=== PATIENT | female | born 1985 | race Caucasian/White ===

== ENCOUNTER 2021-11-21 17:38 | Inpatient (IN) ==
[2021-11-21] MEDS ORDERED: LORazepam 0.5 MG TAB PO STA (18:21)
--- NOTE | 2021-11-21 18:26 | Emergency Department Note ---
Impression & Plan Depression with suicidal ideation, Acute anxiety ED Provider Note NAME: ALIRIO SANTACRUZ AGE: 36 SEX: F : 1985 ARRIVES VIA: Walk-In INFORMANT: Patient, ED PROVIDER(S): Harley De DO CHIEF COMPLAINT: Anxiety and depression HPI: Patient is a 36-year-old female who presented to the emergency department for an evaluation of mental health issues. The patient does have history of depression in the past. She was taking Lexapro. She saw her family doctor recently and had some changes to her medications. She has been weaning off of her previous medication and starting to go up on a new medication. She states that recently she started to notice worsening anxiety as well as depression. She also has been noticing thoughts of wanting to hurt her self. She said that these thoughts are fleeting. He has no specific plan. She states that she just does not want to be here anymore. She does not have a history of inpatient psychiatric treatment in the past. She denies having any specific attempts such as taking any medications to hurt her self. She states her symptoms are moderate at this time. She does not have a primary therapist as she is trying to change therapists and does not have one currently. The patient states she has been not eating well and has had some weight loss. She denies having any chest pain or fevers. ROS: See above HPI for pertinent positives & negatives. A total of 10 systems reviewed and were otherwise negative. PAST MEDICAL HISTORY: See Below PAST SURGICAL HISTORY: See Below FAMILY HISTORY: See Below SOCIAL HISTORY: See Below HOME MEDICATIONS: See Below ALLERGIES: See Below VITALS: See Below PHYSICAL EXAMINATION: GENERAL: The patient is awake and alert. She is anxious and tearful appearing. EYES: The conjunctivae are clear. The pupils are round and reactive. EARS, NOSE, MOUTH AND THROAT: The nose is without any evidence of any deformity. NECK: The neck is nontender and supple. RESPIRATORY: Normal respiratory effort is noted there is no evidence of wheezing rhonchi or rales CARDIOVASCULAR: Regular rate and rhythm noted there no murmurs rubs or gallops normal S1 normal S2. GASTROINTESTINAL: The abdomen is soft. Abdomen is nontender. MUSCULOSKELETAL/EXTREMITIES: There is no evidence of gross deformity full range of motion is noted in the hips and shoulders. SKIN: There is no obvious evidence of any rash. There are no petechiae, pallor or cyanosis noted. NEUROLOGIC: Patient is awake alert and oriented x3. PSYCH: Patient makes poor eye contact for most of the evaluation. The patient is tearful. The patient is currently denying any active suicidal or homicidal ideation with a plan. MEDICAL DECISION MAKING: Is a 36-year-old female who presented to the emergency department with her significant other for evaluation of mental health issues. The patient has had ongoing and worsening depression and anxiety. She started having some loose suicidal ideation but no specific plan. The patient was requesting an evaluation for inpatient management. The patient was medically cleared in the emergency department. She was evaluated by the mental health case technician. At this time a disposition is still pending. The patient was treated with Ativan in the emergency department with significant improvement of her symptoms. The patient was signed out to Dr. Peacock at change of shift. Please see her note for continuation of care and further disposition. Triage Nursing notes reviewed. Prior medical records reviewed Vital Signs: reviewed and remarkable for tachycardia. Differential diagnosis: Mood disorder, infection, hypoglycemia, electrolyte abnormalities, cardiac sources, intracerebral event, toxicologic, trauma, neurologic, as well as other pathologies. ER treatment provided: See below Diagnostics interpreted by me: ECG: none Laboratory studies: As stated above and show below. Imaging studies: See below Consultation(s): none Past Med/Surg History Medical History Depression with anxiety Social History Smoking Status: Never smoker Tobacco Type: Cigarettes Hx Alcohol Use: No Hx Substance Use: No Feels Safe at Home: Yes Allergies Allergies Allergy/AdvReac Type Severity Reaction Status Date / Time No Known Allergies Allergy Unverified 11/22/21 02:27 Home Meds Home Medications Medication Instructions Recorded Confirmed escitalopram oxalate 10 mg tablet 5 mg PO DAILY 11/22/21 11/22/21 lorazepam 0.5 mg tablet 0.5 mg PO BID PRN 11/22/21 11/22/21 sertraline 50 mg tablet 50 mg PO DAILY 11/22/21 11/22/21 Results & Data (ED) Vital Signs Vital Signs - 24 hr 11/21/21 17:52 11/21/21 18:39 11/21/21 21:30 Temperature 36.6 C Temperature Source Temporal Artery Scan Pulse Rate 109 H Pulse Rate [Right Finger] 75 Pulse Rhythm Regular Pulse Strength Normal Respiratory Rate 18 14 Respiratory Effort / Characteristics Non-Labored Spontaneous Respiratory Depth Normal Respiratory Pattern Regular Blood Pressure 117/83 Blood Pressure [Left Arm] 104/77 Blood Pressure Mean 94 Blood Pressure Mean [Left Arm] 86 Blood Pressure Position Sitting Pulse Oximetry 98 99 Oxygen Delivery Method Room Air Room Air Room Air Sepsis Recent Fever Within 48 Hours No Sepsis New/Unexplained Change in Mental Status N/A Sepsis Action Taken by Nursing No Action Required Home Medications Current Medication List: was personally reviewed by me Laboratory Data Attestation: I reviewed the patient's lab results. Result diagrams: 11/21/21 19:01 11/21/21 19:01 Lab Results 11/21/21 11/21/21 11/21/21 Range/Units 18:55 18:57 19:01 WBC 4.75 L (4.8-10.8) K/uL RBC 4.29 (4.2-5.4) M/uL Hgb 12.8 (12.0-16.0) g/dL Hct 38.0 (37-47) % MCV 88.6 (80-100) fL MCH 29.8 (25-34) pg MCHC 33.7 (32-36) g/dL RDW Std Deviation 39.8 (36.4-46.3) fL RDW Coeff of Samantha 12.5 (11.5-14.5) % Plt Count 271 (130-400) K/uL MPV 9.7 (7.4-10.4) fL Immature Gran % (Auto) 0.0 % Neut % (Auto) 62.9 % Lymph % (Auto) 28.0 % [place] % (Auto) 7.8 % Eos % (Auto) 1.1 % Baso % (Auto) 0.2 % Neut # (Auto) 2.99 (1.4-6.5) K/uL Lymph # (Auto) 1.33 (1.2-3.4) K/uL [place] # (Auto) 0.37 (0.11-0.59) K/uL Eos # (Auto) 0.05 (0-0.5) K/uL Baso # (Auto) 0.01 (0-0.2) K/uL Immature Gran # (Auto) 0.00 (0.00-0.02) K/uL Sodium (136-145) mmol/L Potassium (3.5-5.1) mmol/L Chloride (98-107) mmol/L Carbon Dioxide (21-32) mmol/L Anion Gap (3-11) BUN (6-23) mg/dl Creatinine (0.6-1.2) mg/dl Est Cr Clr Drug Dosing ml/min Est GFR ( Amer) ml/min Est GFR (Non-Af Amer) ml/min BUN/Creatinine Ratio (10-20) Glucose (70-99(Fasting)) mg/dl Calcium (8.5-10.1) mg/dl Total Bilirubin (0.2-1.0) mg/dl AST (13-39) U/L ALT (7-52) U/L Alkaline Phosphatase (34-104) U/L Total Protein (6.0-8.3) gm/dl Albumin (3.4-5.0) gm/dl Globulin (2.5-4.0) gm/dl Albumin/Globulin Ratio (0.9-2) TSH (0.300-4.500) uIu/ml HCG, Qual (Negative) Urine Color Urine Appearance (Clear) Urine pH (4.5-7.5) Ur Specific [place] (1.000-1.030) Urine Protein (Negative) Urine Glucose (UA) (Negative) Urine Ketones (Negative) Urine Blood (Negative) Urine Nitrite (Negative) Urine Bilirubin (Negative) Urine Urobilinogen (Negative) Ur Leukocyte Esterase (Negative) Urine WBC (Auto) (0-5) /hpf Urine RBC (Auto) (0-4) /hpf U Hyaline Cast (Auto) (0-5) /lpf U Epithel Cells (Auto) (0-5) /lpf Urine Bacteria (Auto) (Negative) Ur Renal Epithelial Cell Salicylates (3.0-30) mg/dl Urine Opiates Screen Neg (Neg) Ur Methadone, Qual Neg (Neg) Acetaminophen (10-30) ug/ml Urine Barbiturates Neg (Neg) Ur Phencyclidine (PCP) Neg (Neg) U Amphetamin/Meth Scrn Neg (Neg) MDMA (Ecstasy) Screen Neg (Neg) U Benzodiazepines Scrn Neg (Neg) Ur Cocaine Metabolite Neg (Neg) U Marijuana (THC) Screen Neg (Neg) Ethyl Alcohol mg/dL (<10.0) mg/dl SARS-CoV-2, RNA, NAAT NEGATIVE (NEGATIVE) 11/21/21 11/21/21 11/21/21 Range/Units 19:01 19:01 19:01 WBC (4.8-10.8) K/uL RBC (4.2-5.4) M/uL Hgb (12.0-16.0) g/dL Hct (37-47) % MCV (80-100) fL MCH (25-34) pg MCHC (32-36) g/dL RDW Std Deviation (36.4-46.3) fL RDW Coeff of Samantha (11.5-14.5) % Plt Count (130-400) K/uL MPV (7.4-10.4) fL Immature Gran % (Auto) % Neut % (Auto) % Lymph % (Auto) % [place] % (Auto) % Eos % (Auto) % Baso % (Auto) % Neut # (Auto) (1.4-6.5) K/uL Lymph # (Auto) (1.2-3.4) K/uL [place] # (Auto) (0.11-0.59) K/uL Eos # (Auto) (0-0.5) K/uL Baso # (Auto) (0-0.2) K/uL Immature Gran # (Auto) (0.00-0.02) K/uL Sodium 137 (136-145) mmol/L Potassium 4.0 (3.5-5.1) mmol/L Chloride 105 (98-107) mmol/L Carbon Dioxide 27 (21-32) mmol/L Anion Gap 5 (3-11) BUN 11 (6-23) mg/dl Creatinine 0.96 (0.6-1.2) mg/dl Est Cr Clr Drug Dosing 66.5 ml/min Est GFR ( Amer) 88.8 ml/min Est GFR (Non-Af Amer) 76.6 ml/min BUN/Creatinine Ratio 11.5 (10-20) Glucose 91 (70-99(Fasting)) mg/dl Calcium 9.3 (8.5-10.1) mg/dl Total Bilirubin 0.6 (0.2-1.0) mg/dl AST 13 (13-39) U/L ALT 11 (7-52) U/L Alkaline Phosphatase 43 (34-104) U/L Total Protein 7.2 (6.0-8.3) gm/dl Albumin 4.5 (3.4-5.0) gm/dl Globulin 2.7 (2.5-4.0) gm/dl Albumin/Globulin Ratio 1.7 (0.9-2) TSH 1.725 (0.300-4.500) uIu/ml HCG, Qual (Negative) Urine Color Urine Appearance (Clear) Urine pH (4.5-7.5) Ur Specific [place] (1.000-1.030) Urine Protein (Negative) Urine Glucose (UA) (Negative) Urine Ketones (Negative) Urine Blood (Negative) Urine Nitrite (Negative) Urine Bilirubin (Negative) Urine Urobilinogen (Negative) Ur Leukocyte Esterase (Negative) Urine WBC (Auto) (0-5) /hpf Urine RBC (Auto) (0-4) /hpf U Hyaline Cast (Auto) (0-5) /lpf U Epithel Cells (Auto) (0-5) /lpf Urine Bacteria (Auto) (Negative) Ur Renal Epithelial Cell Salicylates < 3.0 L (3.0-30) mg/dl Urine Opiates Screen (Neg) Ur Methadone, Qual (Neg) Acetaminophen < 3 L (10-30) ug/ml Urine Barbiturates (Neg) Ur Phencyclidine (PCP) (Neg) U Amphetamin/Meth Scrn (Neg) MDMA (Ecstasy) Screen (Neg) U Benzodiazepines Scrn (Neg) Ur Cocaine Metabolite (Neg) U Marijuana (THC) Screen (Neg) Ethyl Alcohol mg/dL (<10.0) mg/dl SARS-CoV-2, RNA, NAAT (NEGATIVE) 11/21/21 11/21/21 11/21/21 Range/Units 19:01 19:01 20:10 WBC (4.8-10.8) K/uL RBC (4.2-5.4) M/uL Hgb (12.0-16.0) g/dL Hct (37-47) % MCV (80-100) fL MCH (25-34) pg MCHC (32-36) g/dL RDW Std Deviation (36.4-46.3) fL RDW Coeff of Samantha (11.5-14.5) % Plt Count (130-400) K/uL MPV (7.4-10.4) fL Immature Gran % (Auto) % Neut % (Auto) % Lymph % (Auto) % [place] % (Auto) % Eos % (Auto) % Baso % (Auto) % Neut # (Auto) (1.4-6.5) K/uL Lymph # (Auto) (1.2-3.4) K/uL [place] # (Auto) (0.11-0.59) K/uL Eos # (Auto) (0-0.5) K/uL Baso # (Auto) (0-0.2) K/uL Immature Gran # (Auto) (0.00-0.02) K/uL Sodium (136-145) mmol/L Potassium (3.5-5.1) mmol/L Chloride (98-107) mmol/L Carbon Dioxide (21-32) mmol/L Anion Gap (3-11) BUN (6-23) mg/dl Creatinine (0.6-1.2) mg/dl Est Cr Clr Drug Dosing ml/min Est GFR ( Amer) ml/min Est GFR (Non-Af Amer) ml/min BUN/Creatinine Ratio (10-20) Glucose (70-99(Fasting)) mg/dl Calcium (8.5-10.1) mg/dl Total Bilirubin (0.2-1.0) mg/dl AST (13-39) U/L ALT (7-52) U/L Alkaline Phosphatase (34-104) U/L Total Protein (6.0-8.3) gm/dl Albumin (3.4-5.0) gm/dl Globulin (2.5-4.0) gm/dl Albumin/Globulin Ratio (0.9-2) TSH (0.300-4.500) uIu/ml HCG, Qual Negative (Negative) Urine Color [place] Urine Appearance Clear (Clear) Urine pH 7.0 (4.5-7.5) Ur Specific [place] 1.005 (1.000-1.030) Urine Protein 1+ H (Negative) Urine Glucose (UA) Negative (Negative) Urine Ketones Negative (Negative) Urine Blood 3+ H (Negative) Urine Nitrite Negative (Negative) Urine Bilirubin Negative (Negative) Urine Urobilinogen Negative (Negative) Ur Leukocyte Esterase 2+ H (Negative) Urine WBC (Auto) 10-30 H (0-5) /hpf Urine RBC (Auto) >30 H (0-4) /hpf U Hyaline Cast (Auto) 5-10 H (0-5) /lpf U Epithel Cells (Auto) >30 H (0-5) /lpf Urine Bacteria (Auto) Negative (Negative) Ur Renal Epithelial Cell Not Reportable Salicylates (3.0-30) mg/dl Urine Opiates Screen (Neg) Ur Methadone, Qual (Neg) Acetaminophen (10-30) ug/ml Urine Barbiturates (Neg) Ur Phencyclidine (PCP) (Neg) U Amphetamin/Meth Scrn (Neg) MDMA (Ecstasy) Screen (Neg) U Benzodiazepines Scrn (Neg) Ur Cocaine Metabolite (Neg) U Marijuana (THC) Screen (Neg) Ethyl Alcohol mg/dL < 10.0 (<10.0) mg/dl SARS-CoV-2, RNA, NAAT (NEGATIVE) Administered Medications Discontinued Medications Lorazepam (Lorazepam 0.5 Mg Tab) 0.5 mg PO NOW STA Stop: 11/21/21 18:22 Last Admin: 11/21/21 18:43 Dose: 0.5 mg Documented by: [id number] Discharge Plan Visit Data Chief Complaint: Anxiety Stated Complaint: ANXIETY ED Provider: Helder Ram Discharge Problem: Depression with suicidal ideation, Acute anxiety Patient Disposition: Still a Patient Forms Stand Alone Forms: [facility] [employer] Suicide Prevention Resources Prescriptions Prescriptions: No Action lorazepam 0.5 mg tablet 0.5 mg PO BID PRN (Reason: Anxiety) RF: 0 escitalopram oxalate 10 mg tablet 5 mg PO DAILY RF: 0 sertraline 50 mg tablet 50 mg PO DAILY RF: 0 Referrals Referrals: PCP,NO [Physician] -
[2021-11-21 19:23] LABS: Basophils # (auto) 0.01 K/uL (0-0.2); Basophils % (auto) 0.2 %; Eosinophils # (auto) 0.05 K/uL (0-0.5); Eosinophils % (auto) 1.1 %; Hemoglobin 12.8 g/dL (12.0-16.0); Lymphocytes # (auto) 1.33 K/uL (1.2-3.4); Mean Corpuscular Hemoglobin 29.8 pg (25-34); Mean Corpuscular Hgb Conc 33.7 g/dL (32-36); Mean Corpuscular Volume 88.6 fL (80-100); Mean Platelet Volume 9.7 fL (7.4-10.4); Monocytes # (auto) 0.37 K/uL (0.11-0.59); Monocytes % (auto) 7.8 %; Neutrophils # (auto) 2.99 K/uL (1.4-6.5); Neutrophils % (auto) 62.9 %; Platelet Count 271 K/uL (130-400); RDW Coefficient of Variation 12.5 % (11.5-14.5); RDW Standard Deviation 39.8 fL (36.4-46.3); Red Blood Count 4.29 M/uL (4.2-5.4); White Blood Count 4.75 K/uL (4.8-10.8)
[2021-11-21 19:57] LABS: Pregnancy Test, Serum Negative (Negative)
[2021-11-21 20:09] LABS: Albumin Globulin Ratio 1.7 (0.9-2); Albumin Level 4.5 gm/dl (3.4-5.0); BUN Creatinine Ratio 11.5 (10-20); Bilirubin,Total 0.6 mg/dl (0.2-1.0); Calcium 9.3 mg/dl (8.5-10.1); Creatinine Clr Calc Pharmacy 66.5 ml/min; Est GFR (African American) 88.8 ml/min; Est GFR (Non-African American) 76.6 ml/min; Globulin 2.7 gm/dl (2.5-4.0); Total Protein 7.2 gm/dl (6.0-8.3)
[2021-11-21 20:12] LABS: Acetaminophen < 3 ug/ml (10-30); Salicylate < 3.0 mg/dl (3.0-30)
[2021-11-21 20:30] LABS: Amphetamines+Metham, Urine Neg (Neg); Barbiturates, Urine Neg (Neg); Benzodiazepine, Urine Neg (Neg); Cocaine, Urine Neg (Neg); MDMA (Ecstacy), Urine Neg (Neg); Methadone, Urine Neg (Neg); Opiate, Urine Neg (Neg); Phencyclidine, Urine Neg (Neg)
[2021-11-21 21:18] LABS: Appearance Urine Clear (Clear); Bacteria Urine Automated Negative (Negative); Bilirubin Urine Negative (Negative); Blood Urine 3+ (Negative); Color Urine Orange; Epithelial Cell Urine Auto >30 /lpf (0-5); Glucose Urine UA Negative (Negative); Ketones Urine Negative (Negative); Leukocyte Esterase Urine 2+ (Negative); Nitrite Urine Negative (Negative); Protein Urine 1+ (Negative); RBC Urine Automated >30 /hpf (0-4); Specific Gravity Urine 1.005 (1.000-1.030); Urobilinogen Urine Negative (Negative)
--- NOTE | 2021-11-22 02:07 | Emergency Department Note ---
ED Visit Note I received this patient in signout at the change of shift from Dr. De pending mental health evaluation. Patient was medically cleared and referred to the psychiatric case liner for assessment. Patient strongly desires a voluntary admission to [facility] which may have a bed open in the morning. If there is no open bed in the morning, patient will be open to exploring other facilities. Case was signed out to Dr. Amezcua at the change of shift pending final disposition. .
--- NOTE | 2021-11-22 07:16 | Emergency Department Note ---
ED Visit Note I assumed care at the change of shift. The patient was awaiting evaluation by psychiatry for potential voluntary hospitalization. She had presented depressed. Patient did require some sublingual Ativan during her time here in the ED. She was cooperative. She remained voluntary. The patient was seen by psychiatry case management. Our psychiatry services at this hospital[facility] did evaluate her as well. She has been accepted to [facility] A bed has been secured. .
[2021-11-22] MEDS ORDERED: LORazepam 1 MG TAB SL STA ×2 (08:37→08:48)
[2021-11-22] MEDS ORDERED: SERTRALINE HCL 50 MG TABLET PO SCH (09:00)
[2021-11-22] MEDS ORDERED: ESCITALOPRAM OXALATE ORAL SOLN 5 MG/5 ML PO SCH (09:00)
[2021-11-22] MEDS ORDERED: ESCITALOPRAM OXALATE 20 MG TAB PO SCH (09:00)
[2021-11-22] MEDS ORDERED: ACETAMINOPHEN 325 MG TAB PO PRN (13:41)
[2021-11-22] MEDS ORDERED: ALUMINUM/MAGNESIUM SUSP 30 ML UDC PO PRN (13:41)
[2021-11-22] MEDS ORDERED: SODIUM CHLORIDE 0.65% NA SOLN 45 ML (OCEAN) PRN (13:41)
[2021-11-22] MEDS ORDERED: MAGNESIUM HYDROXIDE SUSP 30 ML UDC PO PRN (13:41)
[2021-11-22] MEDS ORDERED: hydrOXYzine HCl 25 MG TAB PO PRN ×2 (13:41)
[2021-11-22] MEDS ORDERED: BISMUTH SUBSALICYLATE LIQD 236 ML PO PRN (13:41)
--- NOTE | 2021-11-23 08:26 | History & Physical ---
Date of Service November 23, 2021 Impression / Recommendations Impression The patient is a 36 year old with a history of depression, anxiety and post- depression who was admitted for worsening mood symptoms, SI and inability to function in the outpatient setting. Diagnostically consistent with MDD with anxious distress as well as RADHA with panic attacks. The patient is deemed unstable and requires psychiatric hospitalization for diagnostic clarification, safety and stabilization, medication management and development of further coping skills. Discussed medication treatment options in detail. Discussed risks, benefits and alternatives of SSRIs, staying on sertraline, trying fluoxetine or an SNRI or mirtazapine. Patient would like to continue and consented to sertraline for MDD. Reviewed side effects including but not limited to: GI, DUMAS, sexual side effects, and counseled on black box warning of potential for emergence of or increased SI and need to let staff know should this occur or should they feel unsafe. Also discussed importance of seeking emergency care following discharge if this side effect occurs in the future. Also reviewed side effects of ativan, which she consents to continuing, including but not limited to addiction potential, tolerance, dizziness. (1) MDD (major depressive disorder), recurrent episode, moderate: (2) Generalized anxiety disorder with panic attacks: 11/23/21: The patient was admitted to the [facility] ([facility] mental health unit) on q15 min checks (behavioral with suicide precautions) for safety. The patient will participate in group, recreational, and milieu therapies and w ill be offered additional individual and family sessions as clinically appropriate. -sertraline 50mg qhs (with snack to reduce GI symptoms) -mirtazapine 7.5 mg qhs prn -ativan 0.5 mg daily prn -Y-BOCS Inventory Assets Strengths: supportive family, willing to do therapy, intelligent, help seeking Needs: additional coping skills, medication adjustment, safety and stabilization Risk Factors Assessment Acute risk is moderate given mood symptoms, and increasing SI but no zamora or intent and no hx of prior attempts. Most significant modifiable risk factors are treating her depression and anxiety. 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 Chief Complaint "Things have been really difficult". History of Present Illness Kaya presents for admission for worsening depression, anxiety and SI in the context of multiple stressors including less social contact with others outside her family, parenting stressors, some hormonal changes 10 weeks ago when she stopped breast feeding, and in the midst of a cross-taper from escitalopram to sertraline. She has been unable to function in the outpatient setting, including not being able to take care of her children, and thus sought inpatient treatment with the support of her . She began the cross-taper two weeks ago due to worsening mood symptoms and feeling that it was no longer effective. Sertraline was started two weeks ago but she's been having side effects of GI symptoms and somnolence. She endorses mood symptoms of depression and anxiety which have been worsening since June including: tearfulness, self-guilt, hopelessness, helplessness, decreased motivation, low energy, decreased appetite with weight loss (about 15 lbs over the last 2 months), anhedonia, her sleep has been somewhat stable (partly which she attributes to lexapro which helped at night) but still feels tried during the day. Anxiety symptoms including generalized worries, physical symptoms, ruminative thoughts, worries about her kids eating/making/preparing food has become anxiety producing, fatigue, fears about the future, panic attacks, especially on awakening in the morning. Most recently has been very anxious about her kids eating and worrying about negative impacts on the environment. Prominent fear response. She denies compulsive behaviors but feels like it could get to that point. Wakes up every morning feeling anxious and some mornings that becomes a panic attack. On Sunday she had a bad panic attack that made it so she could not care for kids for the rest of the day and was "unfunctional". In the past she's had severe anxiety including having to leave two positions due to high stress leading to significant anxiety. She has in the past gotten very worried about her performance. She notes her anxious thoughts continue to worsen , habe broadened and she feels like "the world is going to end and my children are going to have a really poor quality of life" and "it's not something I can walk away from". She has also started to have thoughts of suicide of no longer wanting to be alive and not wanting to feel anything anymore. No rehearsal behaviors, plan or intent. Psychiatric ROS is notable for pertinent positives for no hx or current symptoms of: brief cutting in high school for a few months. Notable for pertinent negati ves for no hx or current symptoms of: charlie, psychosis, eating disorder, OCD, no hx of trauma. She has been taking escitalopram 5mg qd and sertraline 50mg qd which has been making her nauseaus and tired. She also takes ativan 0.5 mg daily prn (single script 10/03/21 for 30 day supply per PDMP review), she's been using it every day but also had some old scripts she had been using. Past Psychiatric History Previous Psych History: PPD 5 years ago Current Psychiatric Diagnosis: MDD, RADHA Outpatient Services: transitioning to a new therapist Liliam Goins but hasn't met with her yet, previously had a therapist at [facility]; Maria C MARIN who works with a psychiatrist through [facility] in Psychiatric Previous Psych Admissions: n/a Do You Have Access To A Gun?: No History of Previous Suicide Attempt: No Past Medication Trials: Lexapro after PPD for 5 years and recently dose maximized but symptoms persisted Past Head Trauma/Neuro History History of Concussion/Seizure: No Allergies Allergy/AdvReac Type Severity Reaction Status Date / Time No Known Allergies Allergy Verified 11/23/21 10:09 Home Medications Medication Instructions Recorded Confirmed Type escitalopram oxalate 10 mg tablet 5 mg PO DAILY 11/22/21 11/22/21 History lorazepam 0.5 mg tablet 0.25 mg PO BID PRN 11/22/21 11/23/21 History sertraline 50 mg tablet 50 mg PO DAILY 11/22/21 11/22/21 History Family History Family History of: Depression and Other-List under Comment Family Mental Health History Comment: Sister - depression, Maternal Uncle- schizophrenia Alcohol History Hx of Alcohol Use Over the Past 12 Months: Yes (social - less than monthly) AUDIT Total Score: 0 One drink less than once per month Smoking Use Have You Smoked or Used Tobacco Products in the Last 30 Days: No Smoking Status: Never smoker Substance History Hx of Prescription Med Misuse Over the Past 12 Months: No Hx of Over the Counter Med Misuse Over the Past 12 Months: No Hx of Inhalent Misuse Over the Past 12 Months: No Hx of Organic Substance Use Over the Past 12 Months: No Hx of Illegal Substances/Street Drug Use Over Past 12 Months: No Problems as a Result of Past Substance Use: None Identified None Personal History Living Arrangements: Home (with and 2 children) Childhood: [place], [place]. Her parents are . Mother can be a support for helping with her children. Her is a good support but he also works a lot. Has a sister who lives in [place]. 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 ) Marital Status: Number Of Children: 2-5 yo girl and 15 mo old boy Beliefs That Will Affect Care: None Current Legal Problems: No Hx Legal Problems: No Hx Traumatic Life Events: No Patient History Medical History (Updated 11/23/21 @ 10:08 by Ellen Brannon MD) Depression with anxiety Generalized anxiety disorder with panic attacks Post depression POTS (postural orthostatic tachycardia syndrome) not formalized diagnosed but suspects Social History Smoking Status: Never smoker Tobacco Type: Cigarettes Hx Alcohol Use: No Hx Substance Use: No Preferred Language: Dominican Communication Ability: Effective Cultural Anthropology Professor Required: No Beliefs That Will Affect Care: None Feels Safe at Home: Yes Assistive Devices: None Review of Systems Review of Systems: All systems reviewed & are unremarkable except as noted in HPI & below (periods of back pain ) Physical Exam Psychiatric: Orientation: alert and oriented x 3 Apperance: appropriately dressed and appropriately groomed Eye Contact: good eye contact Motor Behavior: no abnormal motor movements Speech: normal rate/rhythm/volume of speech Affect: + depressed affect, + anxious affect and + tearful affect Mood: + depressed mood and + anxious mood Thought Process: goal directed thought process Thought Content: reality based without delusions Suicidal Thoughts: denies suicidal plan and denies suicidal intent; + reports suicidal thoughts (intermittent passive thoughts ) Homicidal Thoughts: denies homicidal thoughts Hallucinations: no auditory hallucinations and no visual hallucinations Cognition: recent memory grossly intact, remote memory grossly intact, attention grossly intact and language grossly intact Estimated Intelligence: consistent with education level Insight: + fair insight Judgement: + fair judgement Vital Signs (Past 24 Hours): Last Vital Signs Temp 36.7 C 11/23/21 05:57 Pulse 73 11/23/21 05:57 Resp 16 11/23/21 05:57 BP 105/68 11/23/21 05:57 Pulse Ox 97 11/22/21 07:00 Exam Statement: A physical exam was performed in the ED by Dr. De for the purposes of medical clearance. I accept that physical as correct and adequate for the purposes of the inpatient physical exam. Results & Data ([facility]) Laboratory Results Reviewed, TSH nml Current Inpatient Medications Current Inpatient Medications: Current Inpatient Medications Acetaminophen (Acetaminophen 325 Mg Tab) 650 mg PO Q4H PRN PRN Reason: Headache or Minor Fever Stop: 12/22/21 13:40 Al Hydrox/Mg Hydrox/Simethicone (Aluminum/Magnesium Susp 30 Ml Udc) 30 ml PO Q4H PRN PRN Reason: GI Upset Stop: 12/22/21 13:40 Bismuth Subsalicylate (Bismuth Subsalicylate Liqd 236 Ml) 15 ml PO PRN PRN PRN Reason: Loose Stool Stop: 12/22/21 13:40 Hydroxyzine HCl (Hydroxyzine Hcl 25 Mg Tab) 50 mg PO HSZ PRN PRN Reason: Insomnia Stop: 12/22/21 13:40 Hydroxyzine HCl (Hydroxyzine Hcl 25 Mg Tab) 25 mg PO Q4H PRN PRN Reason: Anxiety Stop: 12/22/21 13:40 Last Admin: 11/23/21 07:42 Dose: 25 mg Documented by: Magnesium Hydroxide (Magnesium Hydroxide Susp 30 Ml Udc) 30 ml PO DAILY PRN PRN Reason: Constipation Stop: 12/22/21 13:40 Sodium Chloride (Sodium Chloride 0.65% Na Soln 45 Ml ([place])) 1 - 2 sprays NA PRN PRN PRN Reason: Nasal Dryness/Congestion Stop: 12/22/21 13:40
[2021-11-23] MEDS ORDERED: LORazepam 0.5 MG TAB PO PRN (10:59)
[2021-11-23] MEDS ORDERED: MIRTAZAPINE TAB 15 MG TAB PO PRN (11:00)
[2021-11-23] MEDS: SERTRALINE HCL 50 MG TABLET PO SCH (21:55)
[2021-11-23] MEDS ORDERED: MIRTAZAPINE TAB 15 MG TAB PO SCH (22:00)
--- NOTE | 2021-11-24 08:57 | Psychiatric Progress Note ---
Date of Service November 24, 2021 Impression / Recommendations Impression The patient is a 36 year old with a history of depression, anxiety and post- depression who was admitted for worsening mood symptoms, SI and inability to function in the outpatient setting. Diagnostically consistent with MDD with anxious distress as well as RADHA with panic attacks. The patient is deemed unstable and requires psychiatric hospitalization for diagnostic clarification, safety and stabilization, medication management and development of further coping skills. 11/24/21: Switch to scheduled mirtazapine and monitor for improvement in morning sedation, if does not improve could consider stopping versus shifting dosing to slightly earlier in the evening as it does seem to be helping to reduce morning anxiety. Continue with sertraline which she is tolerating well without further GI side effects. Remains distressed by anxiety symptoms. Y-BOCS helped to rule out OCD as potential diagnosis. (1) MDD (major depressive disorder), recurrent episode, moderate: (2) Generalized anxiety disorder with panic attacks: 11/24/21: Schedule mirtazapine. Continue with sertraline. 11/23/21: The patient was admitted to the [facility] ([facility] mental health unit) on q15 min checks (behavioral with suicide precautions) for safety. The patient will participate in group, recreational, and milieu therapies and will be offered additional individual and family sessions as clinically appropriate. -sertraline 50mg qhs (with snack to reduce GI symptoms) -mirtazapine 7.5 mg qhs prn -ativan 0.5 mg daily prn -Y-BOCS Inventory Assets Strengths: supportive family, willing to do therapy, intelligent, help seeking Needs: additional coping skills, medication adjustment, safety and stabilization Risk Factors Assessment Male: No : Yes Do You Have Access To A Gun?: No Health Problems: No Mental Health Diagnoses: Yes Substance Use Disorders: No Previous Attempt: No Family History of Suicide: No Previous Psychiatric Hospitalization: No Hopelessness: Yes Smoker: No Protective Factors Assessment : Yes Responsible for Young Children: Yes Employed: No ([id number] mother) Stable Relationships: Yes Supportive Family: Yes Good Rapport with Provider: Yes Interval History Identifying Information ALIRIO SANTACRUZ is a 36-year-old woman who currently lives in [facility] with her and two children, has a history of post depression, depression and anxiety, and was admitted on 11/22/21 14:00 on a 201 voluntary commitment for worsening depression, anxiety and SI. Chief Complaint "I'm ok". Review of Systems Sleep Information Total Hours of Sleep: 6 Meal Information Percent Meal Consumed - Breakfast: 100 Percent Meal Consumed - Lunch: 100 Percent Meal Consumed - Dinner: 90 Subjective Subjective Patient was seen & assessed and interval progress reviewed with treatment team nursing and social work. Had a long individualized therapy session with unit counselor. Didn't need any prn ativan yesterday nor this morning. Took prn mirtazapine last night. Today reports her mood is "ok". She feels somewhat sedated and groggy from mirtazapine last night but she didn't have as much anxiety this morning nor any GI symptoms. No side effects from the sertraline. She wonders if she's possibly having dizziness but also notes this could be because we talked about that as a possible side effect of mirtazapine and she can end up "convincing myself of things" in regards to side effects. She feels the side effects are tolerable and would like to try the mirtazapine as scheduled again tonight. She completed Y-BOCS inventory, reviewed results of a few obsession/anxious symptoms but no compulsions and that findings on inventory help rule out diagnosis of OCD which she agrees with. Improved appetite today, had breakfast and all of her lunch. Physical Exam Psychiatric Orientation: alert and oriented x 3 Apperance: appropriately dressed and appropriately groomed Eye Contact: good eye contact Motor Behavior: no abnormal motor movements Speech: normal rate/rhythm/volume of speech Affect: + depressed affect and + anxious affect Mood: + depressed mood and + anxious mood Thought Process: goal directed thought process Thought Content: reality based without delusions Suicidal Thoughts: denies suicidal plan and denies suicidal intent; + reports suicidal thoughts (intermittent passive thoughts but feels safe here) Homicidal Thoughts: denies homicidal thoughts Hallucinations: no auditory hallucinations and no visual hallucinations Cognition: recent memory grossly intact, remote memory grossly intact, attention grossly intact and language grossly intact Estimated Intelligence: consistent with education level Insight: + fair insight Judgement: + fair judgement Vital Signs (Past 24 Hours) Last Vital Signs Temp 36.6 C 11/24/21 06:18 Pulse 71 11/24/21 06:18 Resp 16 11/24/21 06:18 BP 105/73 11/24/21 06:18 Pulse Ox 98 04/21/22 06:18 Results & Data ([facility]) Current Inpatient Medications Current Inpatient Medications: Current Inpatient Medications Acetaminophen (Acetaminophen 325 Mg Tab) 650 mg PO Q4H PRN PRN Reason: Headache or Minor Fever Stop: 12/22/21 13:40 Al Hydrox/Mg Hydrox/Simethicone (Aluminum/Magnesium Susp 30 Ml Udc) 30 ml PO Q4H PRN PRN Reason: GI Upset Stop: 12/22/21 13:40 Bismuth Subsalicylate (Bismuth Subsalicylate Liqd 236 Ml) 15 ml PO PRN PRN PRN Reason: Loose Stool Stop: 12/22/21 13:40 Hydroxyzine HCl (Hydroxyzine Hcl 25 Mg Tab) 50 mg PO HSZ PRN PRN Reason: Insomnia Stop: 12/22/21 13:40 Hydroxyzine HCl (Hydroxyzine Hcl 25 Mg Tab) 25 mg PO Q4H PRN PRN Reason: Anxiety Stop: 12/22/21 13:40 Last Admin: 11/23/21 07:42 Dose: 25 mg Documented by: Lorazepam (Lorazepam 0.5 Mg Tab) 0.5 mg PO DAILY PRN PRN Reason: Anxiety Stop: 12/23/21 10:58 Magnesium Hydroxide (Magnesium Hydroxide Susp 30 Ml Udc) 30 ml PO DAILY PRN PRN Reason: Constipation Stop: 12/22/21 13:40 Mirtazapine (Mirtazapine Tab 15 Mg Tab) 7.5 mg PO HS PRN PRN Reason: Anxiety/Insomnia Stop: 12/23/21 21:59 Last Admin: 11/23/21 21:57 Dose: 7.5 mg Documented by: Sertraline HCl (Sertraline Hcl 50 Mg Tablet) 50 mg PO HS SHERYL Stop: 12/23/21 21:59 Last Admin: 11/23/21 21:55 Dose: 50 mg Documented by: Sodium Chloride (Sodium Chloride 0.65% Na Soln 45 Ml ([place])) 1 - 2 sprays NA PRN PRN PRN Reason: Nasal Dryness/Congestion Stop: 12/22/21 13:40 Mental Health & Subst Abuse Tx Psychiatrist Name of Psychiatrist: [facility] - Maria C Zambrano Psychiatrist's Date of Appointment with Psychiatrist: 11/28/21 Time of Appointment with Psychiatrist: 3:30 PM Psychiatric Appointment Comment: [address] [place] [address] Therapist Name of Therapist: Liliam Goins Therapist's Date of Therapist Appointment: 11/30/21 Time of Therapist Appointment: 10:00 AM [facility] call to [facility] after discharge Post Discharge Appointments Primary Care Physician Name Of Family Doctor: [facility] - Dr. Shauna Mayen Primary Care Provider Appointment Comment[facility] [address] [facility] [place] [address] Contact Information Discharge Discharge Address: [address] [place] [address] [place] [id number]
[2021-11-24] MEDS ORDERED: SERTRALINE HCL 50 MG TABLET PO SCH (09:00)
[2021-11-24] MEDS: SERTRALINE HCL 50 MG TABLET PO SCH (21:23)
[2021-11-24] MEDS ORDERED: MIRTAZAPINE TAB 15 MG TAB PO SCH (22:00)
--- NOTE | 2021-11-25 12:29 | Psychiatric Progress Note ---
Date of Service November 25, 2021 Impression / Recommendations Impression The patient is a 36 year old with a history of depression, anxiety and post- depression who was admitted for worsening mood symptoms, SI and inability to function in the outpatient setting. Diagnostically consistent with MDD with anxious distress as well as RADHA with panic attacks. The patient is deemed unstable and requires psychiatric hospitalization for diagnostic clarification, safety and stabilization, medication management and development of further coping skills. 11/25/21: ongoing anxiety but improving (1) MDD (major depressive disorder), recurrent episode, moderate: (2) Generalized anxiety disorder with panic attacks: 11/25/21: continue pm meds but shift dosing to 8 pm. Monitor prn use. family meeting. discussed duration of treatment and denies plan to have more children at this time. 11/24/21: Schedule mirtazapine. Continue with sertraline. 11/23/21: The patient was admitted to the [facility] ([facility]) on q15 min checks (behavioral with suicide precautions) for safety. The patient will participate in group, recreational, and milieu therapies and will be offered additional individual and family sessions as clinically appropriate. -sertraline 50mg qhs (with snack to reduce GI symptoms) -mirtazapine 7.5 mg qhs prn -ativan 0.5 mg daily prn -Y-BOCS Inventory Assets Strengths: supportive family, willing to do therapy, intelligent, help seeking Needs: additional coping skills, medication adjustment, safety and stabilization Risk Factors Assessment Male: No : Yes Do You Have Access To A Gun?: No Health Problems: No Mental Health Diagnoses: Yes Substance Use Disorders: No Previous Attempt: No Family History of Suicide: No Previous Psychiatric Hospitalization: No Hopelessness: Yes Smoker: No Protective Factors Assessment : Yes Responsible for Young Children: Yes Employed: No ([id number] mother) Stable Relationships: Yes Supportive Family: Yes Good Rapport with Provider: Yes Interval History Identifying Information ALIRIO SANTACRUZ is a 36-year-old woman who currently lives in [facility] with her and two children, has a history of post depression, depression and anxiety, and was admitted on 11/22/21 14:00 on a 201 voluntary commitment for worsening depression, anxiety and SI. Chief Complaint "my stomach is a lot better". Review of Systems Sleep Information Total Hours of Sleep: 6 Meal Information Percent Meal Consumed - Breakfast: 30 Percent Meal Consumed - Lunch: 75 Percent Meal Consumed - Dinner: 100 Nutrition Comment: drank protein shake Subjective Subjective Patient was seen & assessed and interval progress reviewed with treatment team. Patient is attending groups, rates mood better in pm than am but less fatigued today. States that she had some difficulty falling alseep. Feels that Vistaril and Ativan prn have both been helpful. Physical Exam Psychiatric Orientation: alert and oriented x 3 Apperance: appropriately dressed and appropriately groomed Eye Contact: good eye contact Motor Behavior: no abnormal motor movements Speech: normal rate/rhythm/volume of speech Affect: + depressed affect and + anxious affect Mood: + depressed mood and + anxious mood Thought Process: goal directed thought process Thought Content: reality based without delusions Suicidal Thoughts: denies suicidal thoughts (last pm), denies suicidal plan and denies suicidal intent Homicidal Thoughts: denies homicidal thoughts Hallucinations: no auditory hallucinations and no visual hallucinations Cognition: recent memory grossly intact, remote memory grossly intact, attention grossly intact and language grossly intact Estimated Intelligence: consistent with education level Insight: + fair insight Judgement: + fair judgement Vital Signs (Past 24 Hours) Last Vital Signs Temp 36.7 C 11/25/21 06:00 Pulse 72 11/25/21 06:14 Resp 16 11/25/21 06:00 BP 107/86 11/25/21 06:14 Pulse Ox 98 11/24/21 06:18 Results & Data ([facility]) Current Inpatient Medications Current Inpatient Medications: Current Inpatient Medications Acetaminophen (Acetaminophen 325 Mg Tab) 650 mg PO Q4H PRN PRN Reason: Headache or Minor Fever Stop: 12/22/21 13:40 Last Admin: 11/25/21 01:39 Dose: 650 mg Documented by: Al Hydrox/Mg Hydrox/Simethicone (Aluminum/Magnesium Susp 30 Ml Udc) 30 ml PO Q4H PRN PRN Reason: GI Upset Stop: 12/22/21 13:40 Bismuth Subsalicylate (Bismuth Subsalicylate Liqd 236 Ml) 15 ml PO PRN PRN PRN Reason: Loose Stool Stop: 12/22/21 13:40 Hydroxyzine HCl (Hydroxyzine Hcl 25 Mg Tab) 50 mg PO HSZ PRN PRN Reason: Insomnia Stop: 12/22/21 13:40 Hydroxyzine HCl (Hydroxyzine Hcl 25 Mg Tab) 25 mg PO Q4H PRN PRN Reason: Anxiety Stop: 12/22/21 13:40 Last Admin: 11/23/21 07:42 Dose: 25 mg Documented by: Lorazepam (Lorazepam 0.5 Mg Tab) 0.5 mg PO DAILY PRN PRN Reason: Anxiety Stop: 12/23/21 10:58 Magnesium Hydroxide (Magnesium Hydroxide Susp 30 Ml Udc) 30 ml PO DAILY PRN PRN Reason: Constipation Stop: 12/22/21 13:40 Mirtazapine (Mirtazapine Tab 15 Mg Tab) 7.5 mg PO HS SHERYL Stop: 12/25/21 19:59 Sertraline HCl (Sertraline Hcl 50 Mg Tablet) 50 mg PO HS SHERYL Stop: 12/25/21 19:59 Sodium Chloride (Sodium Chloride 0.65% Na Soln 45 Ml ([facility])) 1 - 2 sprays NA PRN PRN PRN Reason: Nasal Dryness/Congestion Stop: 12/22/21 13:40 Mental Health & Subst Abuse Tx Psychiatrist Name of Psychiatrist: [facility] - Maria C Zambrano Psychiatrist's Date of Appointment with Psychiatrist: 12/01/21 Time of Appointment with Psychiatrist: 3:00 PM Psychiatric Appointment Comment: [address] [place] [address] Therapist Name of Therapist: Liliam Goins Therapist's Date of Therapist Appointment: 11/30/21 Time of Therapist Appointment: 10:00 AM Therapy Appointment Comment: [address] [place], [place] [address]Partha - call to confirm after discharge Post Discharge Appointments Primary Care Physician Name Of Family Doctor: [facility] - Dr. Shauna Mayen Primary Care Date of Appointment with PCP: 11/30/21 Time of Appointment with PCP: 1:30pm (please arrive by 1:15) Provider Appointment Comment: [address] [place] [address] Contact Information Discharge Discharge Address: [address] [place] [id number]
[2021-11-25] MEDS ORDERED: MIRTAZAPINE TAB 15 MG TAB PO SCH (20:00)
[2021-11-25] MEDS ORDERED: SERTRALINE HCL 50 MG TABLET PO SCH ×3 (20:00)
--- NOTE | 2021-11-26 11:19 | Discharge Summary ---
Date of Service November 26, 2021 History of Present Illness As per Dr. Brannon on admission Kaya presents for admission for worsening depression, anxiety and SI in the context of multiple stressors including less social contact with others outside her family, parenting stressors, some hormonal changes 10 weeks ago when she stopped breast feeding, and in the midst of a cross-taper from escitalopram to sertraline. She has been unable to function in the outpatient setting, including not being able to take care of her children, and thus sought inpatient treatment with the support of her . She began the cross-taper two weeks ago due to worsening mood symptoms and feeling that it was no longer effective. Sertraline was started two weeks ago but she's been having side effects of GI symptoms and somnolence. She endorses mood symptoms of depression and anxiety which have been worsening since June including: tearfulness, self-guilt, hopelessness, helplessness, decreased motivation, low energy, decreased appetite with weight loss (about 15 lbs over the last 2 months), anhedonia, her sleep has been somewhat stable (partly which she attributes to lexapro which helped at night) but still feels tried during the day. Anxiety symptoms including generalized worries, physical symptoms, ruminative thoughts, worries about her kids eating/making/preparing food has become anxiety producing, fatigue, fears about the future, panic attacks, especially on awakening in the morning. Most recently has been very anxious about her kids eating and worrying about negative impacts on the environment. Prominent fear response. She denies compulsive behaviors but feels like it could get to that point. Wakes up every morning feeling anxious and some mornings that becomes a panic attack. On Sunday she had a bad panic attack that made it so she could not care for kids for the rest of the day and was "unfunctional". In the past she's had severe anxiety including having to leave two positions due to high stress leading to significant anxiety. She has in the past gotten very worried about her performance. She notes her anxious thoughts continue to worsen , habe broadened and she feels like "the world is going to end and my children are going to have a really poor quality of life" and "it's not something I can walk away from". She has also started to have thoughts of suicide of no longer wanting to be alive and not wanting to feel anything anymore. No rehearsal behaviors, plan or intent. Psychiatric ROS is notable for pertinent positives for no hx or current symptoms of: brief cutting in high school for a few months. Notable for pertinent negatives for no hx or current symptoms of: charlie, psychosis, eating disorder, OCD, no hx of trauma. She has been taking escitalopram 5mg qd and sertraline 50mg qd which has been making her nauseaus and tired. She also takes ativan 0.5 mg daily prn (single script 10/03/21 for 30 day supply per PDMP review), she's been using it every day but also had some old scripts she had been using. Physical Exam Psychiatric See admission H&P and DOD assessment. Vital Signs (Past 24 Hours) Last Vital Signs Temp 36.6 C 11/26/21 06:37 Pulse 69 11/26/21 06:38 Resp 16 11/26/21 06:37 BP 114/76 11/26/21 06:38 Pulse Ox 98 11/24/21 06:18 Principal Diagnosis major depressive disorder Psychiatric Data See daily stay summary. In short, safety was maintained and the patient was cooperative with care. She denied suicidal thoughts as her stay progressed and was eating and sleeping better. Medication changes included trial of Remeron to augment Zoloft and shifting Zoloft to pm and they tolerated this well. Prn Vistaril was also effective. Reviewed that meds will continue to be monitored/adjusted on an outpatient basis depending on her response. May have option of Remeron monotherapy with dose increase or titration of Zoloft as per outpatient provider. She still has some prn Ativan at home which will use for emergencies if Vistaril ineffective. A family session was held with her and safety plan was completed prior to discharge. Her mother is staying for approximately another week to ease transition home with young children. Day of Discharge Assessment Today the patient voices readiness for discharge. They note improvement in mood and deny thoughts to harm self or others. Thoughts remain organized and they are improved from admission. There is no evidence of psychosis. They agree to take mediations as prescribed and keep follow-up appointments. They are stable for discharge to outpatient level of care. Transition of Care Transition Of Care Record: was reviewed with the patient Advance Directives Advance Directives Information Provided: Yes Advance Directives: No Mental Health Advance Directive: No Advance Directives on File: No Living Will: No Power of Agricultural Lender: No Advance Directives Reason:: Declines as Mental Health Visit. Risk Factors Assessment Male: No : Yes Do You Have Access To A Gun?: No Health Problems: No Mental Health Diagnoses: Yes Substance Use Disorders: No Previous Attempt: No Family History of Suicide: No Previous Psychiatric Hospitalization: No Hopelessness: Yes Smoker: No Protective Factors Assessment : Yes Responsible for Young Children: Yes Employed: No ([id number] mother) Stable Relationships: Yes Supportive Family: Yes Good Rapport with Provider: Yes Tobacco Cessation at Discharge Tobacco Cessation Medication Prescribed at Discharge: Not Applicable/Non-Smoker Total Time Total Time Spent: Greater Than 30 Minutes Total Time Includes: Examination of the patient, Discharge Planning and Medication Reconciliation Discharge Data Lab Results 11/21/21 11/21/21 11/21/21 18:55 18:57 19:01 WBC 4.75 L RBC 4.29 Hgb 12.8 Hct 38.0 MCV 88.6 MCH 29.8 MCHC 33.7 RDW Std Deviation 39.8 RDW Coeff of Samantha 12.5 Plt Count 271 MPV 9.7 Immature Gran % (Auto) 0.0 Neut % (Auto) 62.9 Lymph % (Auto) 28.0 [place] % (Auto) 7.8 Eos % (Auto) 1.1 Baso % (Auto) 0.2 Neut # (Auto) 2.99 Lymph # (Auto) 1.33 [place] # (Auto) 0.37 Eos # (Auto) 0.05 Baso # (Auto) 0.01 Immature Gran # (Auto) 0.00 Sodium Potassium Chloride Carbon Dioxide Anion Gap BUN Creatinine Est Cr Clr Drug Dosing Est GFR ( Amer) Est GFR (Non-Af Amer) BUN/Creatinine Ratio Glucose Calcium Total Bilirubin AST ALT Alkaline Phosphatase Total Protein Albumin Globulin Albumin/Globulin Ratio TSH HCG, Qual Urine Color Urine Appearance Urine pH Ur Specific [place] Urine Protein Urine Glucose (UA) Urine Ketones Urine Blood Urine Nitrite Urine Bilirubin Urine Urobilinogen Ur Leukocyte Esterase Urine WBC (Auto) Urine RBC (Auto) U Hyaline Cast (Auto) U Epithel Cells (Auto) Urine Bacteria (Auto) Ur Renal Epithelial Cell Salicylates Urine Opiates Screen Neg Ur Methadone, Qual Neg Acetaminophen Urine Barbiturates Neg Ur Phencyclidine (PCP) Neg U Amphetamin/Meth Scrn Neg MDMA (Ecstasy) Screen Neg U Benzodiazepines Scrn Neg Ur Cocaine Metabolite Neg U Marijuana (THC) Screen Neg Ethyl Alcohol mg/dL SARS-CoV-2, RNA, NAAT NEGATIVE 11/21/21 11/21/21 11/21/21 19:01 19:01 19:01 WBC RBC Hgb Hct MCV MCH MCHC RDW Std Deviation RDW Coeff of Samantha Plt Count MPV Immature Gran % (Auto) Neut % (Auto) Lymph % (Auto) [place] % (Auto) Eos % (Auto) Baso % (Auto) Neut # (Auto) Lymph # (Auto) [place] # (Auto) Eos # (Auto) Baso # (Auto) Immature Gran # (Auto) Sodium 137 Potassium 4.0 Chloride 105 Carbon Dioxide 27 Anion Gap 5 BUN 11 Creatinine 0.96 Est Cr Clr Drug Dosing 66.5 Est GFR ( Amer) 88.8 Est GFR (Non-Af Amer) 76.6 BUN/Creatinine Ratio 11.5 Glucose 91 Calcium 9.3 Total Bilirubin 0.6 AST 13 ALT 11 Alkaline Phosphatase 43 Total Protein 7.2 Albumin 4.5 Globulin 2.7 Albumin/Globulin Ratio 1.7 TSH 1.725 HCG, Qual Urine Color Urine Appearance Urine pH Ur Specific [place] Urine Protein Urine Glucose (UA) Urine Ketones Urine Blood Urine Nitrite Urine Bilirubin Urine Urobilinogen Ur Leukocyte Esterase Urine WBC (Auto) Urine RBC (Auto) U Hyaline Cast (Auto) U Epithel Cells (Auto) Urine Bacteria (Auto) Ur Renal Epithelial Cell Salicylates < 3.0 L Urine Opiates Screen Ur Methadone, Qual Acetaminophen < 3 L Urine Barbiturates Ur Phencyclidine (PCP) U Amphetamin/Meth Scrn MDMA (Ecstasy) Screen U Benzodiazepines Scrn Ur Cocaine Metabolite U Marijuana (THC) Screen Ethyl Alcohol mg/dL SARS-CoV-2, RNA, NAAT 11/21/21 11/21/21 11/21/21 19:01 19:01 20:10 WBC RBC Hgb Hct MCV MCH MCHC RDW Std Deviation RDW Coeff of Samantha Plt Count MPV Immature Gran % (Auto) Neut % (Auto) Lymph % (Auto) [place] % (Auto) Eos % (Auto) Baso % (Auto) Neut # (Auto) Lymph # (Auto) [place] # (Auto) Eos # (Auto) Baso # (Auto) Immature Gran # (Auto) Sodium Potassium Chloride Carbon Dioxide Anion Gap BUN Creatinine Est Cr Clr Drug Dosing Est GFR ( Amer) Est GFR (Non-Af Amer) BUN/Creatinine Ratio Glucose Calcium Total Bilirubin AST ALT Alkaline Phosphatase Total Protein Albumin Globulin Albumin/Globulin Ratio TSH HCG, Qual Negative Urine Color [place] Urine Appearance Clear Urine pH 7.0 Ur Specific [place] 1.005 Urine Protein 1+ H Urine Glucose (UA) Negative Urine Ketones Negative Urine Blood 3+ H Urine Nitrite Negative Urine Bilirubin Negative Urine Urobilinogen Negative Ur Leukocyte Esterase 2+ H Urine WBC (Auto) 10-30 H Urine RBC (Auto) >30 H U Hyaline Cast (Auto) 5-10 H U Epithel Cells (Auto) >30 H Urine Bacteria (Auto) Negative Ur Renal Epithelial Cell Not Reportable Salicylates Urine Opiates Screen Ur Methadone, Qual Acetaminophen Urine Barbiturates Ur Phencyclidine (PCP) U Amphetamin/Meth Scrn MDMA (Ecstasy) Screen U Benzodiazepines Scrn Ur Cocaine Metabolite U Marijuana (THC) Screen Ethyl Alcohol mg/dL < 10.0 SARS-CoV-2, RNA, NAAT Hospital Course (1) MDD (major depressive disorder), recurrent episode, moderate: (2) Generalized anxiety disorder with panic attacks: 11/25/21: continue pm meds but shift dosing to 8 pm. Monitor prn use. family meeting. discussed duration of treatment and denies plan to have more children at this time. 11/24/21: Schedule mirtazapine. Continue with sertraline. 11/23/21: The patient was admitted to the [facility] ([facility]) on q15 min checks (behavioral with suicide precautions) for safety. The patient will participate in group, recreational, and milieu therapies and will be offered additional individual and family sessions as clinically appropriate. -sertraline 50mg qhs (with snack to reduce GI symptoms) -mirtazapine 7.5 mg qhs prn -ativan 0.5 mg daily prn -Y-BOCS Mental Health & Subst Abuse Tx Psychiatrist Name of Psychiatrist: [facility] - Maria C Zambrano Psychiatrist's Date of Appointment with Psychiatrist: 12/01/21 Time of Appointment with Psychiatrist: 3:00 PM Psychiatric Appointment Comment: [address] [place] [address] Therapist Name of Therapist: Liliam Buster Therapist's Date of Therapist Appointment: 11/30/21 Time of Therapist Appointment: 10:00 AM [facility] [address] [facility] Post Discharge Appointments Primary Care Physician Name Of Family Doctor: [facility] - Dr. Shauna Mayen Primary Care Date of Appointment with PCP: 11/30/21 Time of Appointment with PCP: 1:30pm (please arrive by 1:15) Provider Appointment Comment: [address] [place] [address] Smoking Cessation Counseling Tobacco Cessation Medication Prescribed at Discharge: Not Applicable/Non-Smoker Contact Information Discharge Discharge Address: [address] [place] [id number] Discharge Plan Discharge Items Patient Disposition: Home - Self-Care Reason For Visit: ANXIETY Discharge Diagnosis: major depressive disorder Activity: Resume your previous activity Non-emergency contact: Primary Care Provider, Psychiatrist and Therapist Call non-emergency contact if: you have any medication questions and your symptoms worsen Follow-up/Referrals: Shauna Mayen DO [Primary Care Provider] - Diet: Regular Addtl Attending Provider Instructions: SPECIAL CARE INSTRUCTIONS: 1. Follow through with your scheduled aftercare appointments. If unable to keep an appointment, please call to reschedule. 2. Take your medication only as prescribed. Medication should not be changed or stopped without the approval of your doctor. In the event of worsening symptoms or concerns about side effects, contact your doctor immediately. 3. Utilize new healthy coping skills, anger management skills, and stress management skills learned during your hospitalization. Journal feelings and process them with a support person. Identify stressors or situations that may result in relapse, deterioration or inappropriate behaviors and develop a plan to deal with those issues. 4. If your coping skills are ineffective and you are in crisis, contact your outpatient providers for direction. If unable to reach your providers, please call the [facility] CRISIS LINE AT , go to the [facility] walk-in center at [address], [address], [place], or go to the closest Emergency Room. 5. Avoid alcohol and un-prescribed drugs. 6. You have been provided with the Mental Health Advance Directives Pamphlet for your review. 7. Your condition is stable for discharge to outpatient level of care, but recovery is an ongoing process. Ifthoughts to harm yourself or others return, follow the safety plan developed during your stay. Planning for a safe return home includes securing weapons. Our treatment team recommends weaponsbe removed from the home until your outpatient provider reassesses your progress. In rare cases where the items themselvescannot be removed, guns and ammunitionshould be secured separatelyand keys stored by a reliable personoutside of the home. If you were admitted on an involuntary commitment, the police or other legal authorities may be involved in this process. AFTERCARE APPOINTMENTS: * Please call your insurance company prior to your scheduled appointment to confirm your aftercare providers are covered. Take your insurance information to your appointments. WHO TO CALL AND WHEN: Medical Emergencies: For questions or emergencies related to your hospital stay, please contact the Inpatient Behavioral Health Unit at [phone]. A home health clinician is on-call 26/02 for the Behavioral Health Unit for emergencies At any time you feel your situation is an emergency, you may also call 911 immediately. Pending Studies at Discharge: No Stand-Alone Forms: My [facility], Smoking Cessation Medications and DC Order Prescriptions: New hydroxyzine HCl 25 mg Tablet 25 mg PO Q4H PRN (Reason: Anxiety) 7 Days Qty: 10 RF: 0 mirtazapine 7.5 mg tablet 7.5 mg PO DAILY@2000 30 Days Qty: 30 RF: 0 Continued lorazepam 0.5 mg tablet 0.25 mg PO BID PRN (Reason: Anxiety) RF: 0 sertraline 50 mg tablet 50 mg PO DAILY RF: 0 Discontinued escitalopram oxalate 10 mg tablet 5 mg PO DAILY RF: 0 Discharge Orders: Discharge Order (Routine); Ordered 11/26/21 Ordered By: Mitzi Fortune Admission Data Admit Date/Time: 11/22/21 14:00 Attending Provider: Mitzi Fortune Admit Provider: Ellen Brannon Primary Care Provider: Shauna Mayen Other Interventions: Discharge Summary Assessment (RN) Last Done: 11/26/21 12:46 PSY Interdisciplinary Discharge Planning Last Done: 11/25/21 11:24 Coding Level of Care Code 86902 D/C day mgmt > 30 min Diagnoses MDD (major depressive disorder), recurrent episode, moderate F33.1 Generalized anxiety disorder with panic attacks F41.1; F41.0
== END 2021-11-26 14:22 | disposition home or self-care (01) | DRG 885 ==
LOC: ED 17:38 → 3S 11-22 13:53 → SUATTDRO 11-22 14:00 → 3S 11-22 14:00

== ENCOUNTER 2022-06-11 17:22 | Inpatient (IN) ==
--- NOTE | 2022-06-11 18:35 | Emergency Department Note ---
Impression & Plan Suicidal thoughts ADMIT ED Provider Note HPI: The patient is a 37-year-old female who presents the emergency department with a chief complaint of worsening depression, stating that she is having some intermittent suicidal thoughts over the past several days. Patient states that she has been having thoughts of overdosing on her medications. Patient states that she has had some stressors in her life recently that have been making her feel worse, states that her mother was helping her at home and recently had to leave, she states that she has been fighting increasingly with her . On arrival here to the ED the patient denies any active plan to harm herself, she is alert and oriented, she is cooperative on my exam, she is otherwise in no acute distress on my initial evaluation. ROS: -Psychiatric: Anxiety/depression, suicidal thoughts *10 point review systems was conducted and is otherwise negative unless stated above *Outpatient medications and allergy history reviewed PE: General: Alert HEENT: Normocephalic, trachea midline Eyes: Extraocular eye movement is intact, no scleral erythema Pulmonary: Clear to auscultation bilaterally, no wheezing Cardio: Regular rate and rhythm GI: Abdomen is soft, nontender : No suprapubic tenderness MSK: No evidence of trauma or malformation of the extremities, no edema Skin: No evidence of rash Neuro: Alert, no focal deficits Psychiatric: Cooperative Medical Decision Making: Patient presented to the emergency department with increasing anxiety and depression, stated that over the past several days she has had thoughts of wanting to kill herself by overdosing on medications. Patient was medically cleared here in the ED, on my assessment she is calm and cooperative. She was assessed for placement at [facility] by case management. Patient was eventually accepted for placement at [facility] Patient was in agreement to this plan. She was transferred in stable condition to [facility] for inpatient psychiatric care. Diagnosis: 1. Anxiety and depression 2. Suicidal thoughts Disposition: Admission to psychiatry Dennis Allison DO Emergency Medicine Past Med/Surg History Medical History Acute anxiety Depression with anxiety Depression with suicidal ideation Generalized anxiety disorder with panic attacks Post depression POTS (postural orthostatic tachycardia syndrome) not formalized diagnosed but suspects Social History Smoking Status: Never smoker Tobacco Type: Cigarettes Hx Alcohol Use: No Hx Substance Use: No Preferred Language: Slovenian Communication Ability: Effective Ecologist Technician Required: No Beliefs That Will Affect Care: None Feels Safe at Home: Hesitant to Answer Assistive Devices: None Allergies Allergies Allergy/AdvReac Type Severity Reaction Status Date / Time No Known Allergies Allergy Verified 11/23/21 10:09 Home Meds Home Medications Medication Instructions Recorded Confirmed gabapentin 100 mg capsule 100 mg PO 4XD 06/11/22 06/11/22 hydroxyzine HCl 25 mg tablet 25 mg PO Q4 06/11/22 06/11/22 lorazepam 0.5 mg tablet 0.5 mg BID 06/11/22 06/11/22 mirtazapine 15 mg tablet 15 mg PO HS 06/11/22 06/11/22 sertraline 100 mg tablet 175 mg PO HS 06/11/22 06/11/22 Results & Data (ED) Vital Signs Vital Signs - 24 hr 06/11/22 17:37 06/11/22 18:36 06/11/22 21:15 Temperature 36.9 C Temperature Source Oral Pulse Rate 99 H Pulse Rate [Left Finger] 77 Pulse Rhythm [Left Finger] Regular Pulse Strength [Left Finger] Normal Respiratory Rate 16 18 Respiratory Effort / Characteristics Non-Labored Spontaneous Non-Labored Respiratory Depth Normal Normal Respiratory Pattern Regular Regular Blood Pressure [Right Arm] 120/73 Blood Pressure Mean [Right Arm] 88 Blood Pressure Position Sitting Blood Pressure Position [Right Arm] Sitting Pulse Oximetry 98 96 100 Oxygen Delivery Method Room Air Room Air Room Air Sepsis Recent Fever Within 48 Hours No Sepsis New/Unexplained Change in Mental Status N/A Sepsis Action Taken by Nursing No Action Required 06/12/22 00:13 Temperature Temperature Source Pulse Rate Pulse Rate [Left Finger] 72 Pulse Rhythm [Left Finger] Pulse Strength [Left Finger] Respiratory Rate 20 Respiratory Effort / Characteristics Respiratory Depth Respiratory Pattern Blood Pressure [Right Arm] 123/77 Blood Pressure Mean [Right Arm] 92 Blood Pressure Position Blood Pressure Position [Right Arm] Pulse Oximetry 98 Oxygen Delivery Method Room Air Sepsis Recent Fever Within 48 Hours Sepsis New/Unexplained Change in Mental Status Sepsis Action Taken by Nursing Laboratory Data Result diagrams: 06/11/22 18:58 06/11/22 18:58 Lab Results 06/11/22 06/11/22 06/11/22 Range/Units 18:46 18:46 18:46 WBC (4.8-10.8) K/ul RBC (3.93-5.22) M/uL Hgb (12.0-16.0) g/dl Hct (34.1-44.9) % MCV (80.0-100.0) fL MCH (25.0-34.0) pg MCHC (32.0-36.0) g/dL RDW Std Deviation (36.4-46.3) fL RDW Coeff of Samantha (11.5-14.5) % Plt Count (130-400) K/uL MPV (9.4-12.3) fL Immature Gran % (Auto) % Neut % (Auto) % Lymph % (Auto) % [place] % (Auto) % Eos % (Auto) % Baso % (Auto) % Neut # (Auto) (1.4-6.5) K/uL Lymph # (Auto) (1.2-3.4) K/uL [place] # (Auto) (0.24-0.82) K/uL Eos # (Auto) (0-0.50) K/uL Baso # (Auto) (0-0.2) K/uL Immature Gran # (Auto) (0.00-0.02) K/uL Sodium (136-145) mmol/L Potassium (3.5-5.1) mmol/L Chloride (98-107) mmol/L Carbon Dioxide (21-32) mmol/L Anion Gap (3-11) BUN (6-23) mg/dl Creatinine (0.6-1.2) mg/dl Est Cr Clr Drug Dosing ml/min Est GFR ( Amer) ml/min Est GFR (Non-Af Amer) ml/min BUN/Creatinine Ratio (10-20) Glucose (70-99(Fasting)) mg/dl Calcium (8.5-10.1) mg/dl Total Bilirubin (0.2-1.0) mg/dl AST (13-39) U/L ALT (7-52) U/L Alkaline Phosphatase (34-104) U/L Total Protein (6.0-8.3) gm/dl Albumin (3.4-5.0) gm/dl Globulin (2.5-4.0) gm/dl Albumin/Globulin Ratio (0.9-2) TSH (0.300-4.500) uIu/ml Urine Color Yellow Urine Appearance Clear (Clear) Urine pH 5.5 (4.5-7.5) Ur Specific [place] 1.009 (1.000-1.030) Urine Protein Negative (Negative) Urine Glucose (UA) Negative (Negative) Urine Ketones Negative (Negative) Urine Blood 3+ H (Negative) Urine Nitrite Negative (Negative) Urine Bilirubin Negative (Negative) Urine Urobilinogen Negative (Negative) Ur Leukocyte Esterase Trace H (Negative) Urine WBC (Auto) 1-5 (0-5) /hpf Urine RBC (Auto) 10-30 H (0-4) /hpf U Hyaline Cast (Auto) 0 (0-5) /lpf U Epithel Cells (Auto) >30 H (0-5) /lpf Urine Bacteria (Auto) Negative (Negative) Salicylates (3.0-30) mg/dl Urine Opiates Screen Neg (Neg) Ur Methadone, Qual Neg (Neg) Acetaminophen (10-30) ug/ml Urine Barbiturates Neg (Neg) Ur Phencyclidine (PCP) Neg (Neg) U Amphetamin/Meth Scrn Neg (Neg) MDMA (Ecstasy) Screen Neg (Neg) U Benzodiazepines Scrn Neg (Neg) Ur Cocaine Metabolite Neg (Neg) U Marijuana (THC) Screen Neg (Neg) Ethyl Alcohol mg/dL (<10.0) mg/dl SARS-CoV-2, RNA, NAAT NEGATIVE (NEGATIVE) 06/11/22 06/11/22 06/11/22 Range/Units 18:58 18:58 18:58 WBC 5.48 (4.8-10.8) K/ul RBC 4.42 (3.93-5.22) M/uL Hgb 11.2 L (12.0-16.0) g/dl Hct 35.1 (34.1-44.9) % MCV 79.4 L (80.0-100.0) fL MCH 25.3 (25.0-34.0) pg MCHC 31.9 L (32.0-36.0) g/dL RDW Std Deviation 37.6 (36.4-46.3) fL RDW Coeff of Samantha 13.2 (11.5-14.5) % Plt Count 281 (130-400) K/uL MPV 10.4 (9.4-12.3) fL Immature Gran % (Auto) 0.2 % Neut % (Auto) 66.0 % Lymph % (Auto) 24.8 % [place] % (Auto) 6.8 % Eos % (Auto) 1.8 % Baso % (Auto) 0.4 % Neut # (Auto) 3.62 (1.4-6.5) K/uL Lymph # (Auto) 1.36 (1.2-3.4) K/uL [place] # (Auto) 0.37 (0.24-0.82) K/uL Eos # (Auto) 0.10 (0-0.50) K/uL Baso # (Auto) 0.02 (0-0.2) K/uL Immature Gran # (Auto) 0.01 (0.00-0.02) K/uL Sodium 138 (136-145) mmol/L Potassium 4.3 (3.5-5.1) mmol/L Chloride 105 (98-107) mmol/L Carbon Dioxide 28 (21-32) mmol/L Anion Gap 5 (3-11) BUN 16 (6-23) mg/dl Creatinine 0.91 (0.6-1.2) mg/dl Est Cr Clr Drug Dosing 70.6 ml/min Est GFR ( Amer) 94.1 ml/min Est GFR (Non-Af Amer) 81.2 ml/min BUN/Creatinine Ratio 17.6 (10-20) Glucose 94 (70-99(Fasting)) mg/dl Calcium 9.4 (8.5-10.1) mg/dl Total Bilirubin 0.5 (0.2-1.0) mg/dl AST 13 (13-39) U/L ALT 10 (7-52) U/L Alkaline Phosphatase 44 (34-104) U/L Total Protein 7.6 (6.0-8.3) gm/dl Albumin 4.5 (3.4-5.0) gm/dl Globulin 3.1 (2.5-4.0) gm/dl Albumin/Globulin Ratio 1.5 (0.9-2) TSH 2.656 (0.300-4.500) uIu/ml Urine Color Urine Appearance (Clear) Urine pH (4.5-7.5) Ur Specific [place] (1.000-1.030) Urine Protein (Negative) Urine Glucose (UA) (Negative) Urine Ketones (Negative) Urine Blood (Negative) Urine Nitrite (Negative) Urine Bilirubin (Negative) Urine Urobilinogen (Negative) Ur Leukocyte Esterase (Negative) Urine WBC (Auto) (0-5) /hpf Urine RBC (Auto) (0-4) /hpf U Hyaline Cast (Auto) (0-5) /lpf U Epithel Cells (Auto) (0-5) /lpf Urine Bacteria (Auto) (Negative) Salicylates (3.0-30) mg/dl Urine Opiates Screen (Neg) Ur Methadone, Qual (Neg) Acetaminophen (10-30) ug/ml Urine Barbiturates (Neg) Ur Phencyclidine (PCP) (Neg) U Amphetamin/Meth Scrn (Neg) MDMA (Ecstasy) Screen (Neg) U Benzodiazepines Scrn (Neg) Ur Cocaine Metabolite (Neg) U Marijuana (THC) Screen (Neg) Ethyl Alcohol mg/dL (<10.0) mg/dl SARS-CoV-2, RNA, NAAT (NEGATIVE) 06/11/22 06/11/22 Range/Units 18:58 18:58 WBC (4.8-10.8) K/ul RBC (3.93-5.22) M/uL Hgb (12.0-16.0) g/dl Hct (34.1-44.9) % MCV (80.0-100.0) fL MCH (25.0-34.0) pg MCHC (32.0-36.0) g/dL RDW Std Deviation (36.4-46.3) fL RDW Coeff of Samantha (11.5-14.5) % Plt Count (130-400) K/uL MPV (9.4-12.3) fL Immature Gran % (Auto) % Neut % (Auto) % Lymph % (Auto) % [place] % (Auto) % Eos % (Auto) % Baso % (Auto) % Neut # (Auto) (1.4-6.5) K/uL Lymph # (Auto) (1.2-3.4) K/uL [place] # (Auto) (0.24-0.82) K/uL Eos # (Auto) (0-0.50) K/uL Baso # (Auto) (0-0.2) K/uL Immature Gran # (Auto) (0.00-0.02) K/uL Sodium (136-145) mmol/L Potassium (3.5-5.1) mmol/L Chloride (98-107) mmol/L Carbon Dioxide (21-32) mmol/L Anion Gap (3-11) BUN (6-23) mg/dl Creatinine (0.6-1.2) mg/dl Est Cr Clr Drug Dosing ml/min Est GFR ( Amer) ml/min Est GFR (Non-Af Amer) ml/min BUN/Creatinine Ratio (10-20) Glucose (70-99(Fasting)) mg/dl Calcium (8.5-10.1) mg/dl Total Bilirubin (0.2-1.0) mg/dl AST (13-39) U/L ALT (7-52) U/L Alkaline Phosphatase (34-104) U/L Total Protein (6.0-8.3) gm/dl Albumin (3.4-5.0) gm/dl Globulin (2.5-4.0) gm/dl Albumin/Globulin Ratio (0.9-2) TSH (0.300-4.500) uIu/ml Urine Color Urine Appearance (Clear) Urine pH (4.5-7.5) Ur Specific [place] (1.000-1.030) Urine Protein (Negative) Urine Glucose (UA) (Negative) Urine Ketones (Negative) Urine Blood (Negative) Urine Nitrite (Negative) Urine Bilirubin (Negative) Urine Urobilinogen (Negative) Ur Leukocyte Esterase (Negative) Urine WBC (Auto) (0-5) /hpf Urine RBC (Auto) (0-4) /hpf U Hyaline Cast (Auto) (0-5) /lpf U Epithel Cells (Auto) (0-5) /lpf Urine Bacteria (Auto) (Negative) Salicylates < 3.0 L (3.0-30) mg/dl Urine Opiates Screen (Neg) Ur Methadone, Qual (Neg) Acetaminophen < 3 L (10-30) ug/ml Urine Barbiturates (Neg) Ur Phencyclidine (PCP) (Neg) U Amphetamin/Meth Scrn (Neg) MDMA (Ecstasy) Screen (Neg) U Benzodiazepines Scrn (Neg) Ur Cocaine Metabolite (Neg) U Marijuana (THC) Screen (Neg) Ethyl Alcohol mg/dL < 10.0 (<10.0) mg/dl SARS-CoV-2, RNA, NAAT (NEGATIVE) Administered Medications Mirtazapine (Mirtazapine Tab 15 Mg Tab) 15 mg PO HS SHERYL Stop: 07/11/22 20:59 Last Admin: 06/11/22 22:05 Dose: 15 mg Documented By: ASW Sertraline HCl (Sertraline Hcl 100 Mg Tablet) 175 mg PO HS SHERYL Stop: 07/11/22 20:59 Last Admin: 06/11/22 22:05 Dose: 175 mg Documented By: ASW Discharge Plan Visit Data Chief Complaint: Anxiety Stated Complaint: ANXIETY, WORSE IN THE LAST 2 WEEKS ED Provider: Dennis Allison Discharge Problem: Suicidal thoughts Patient Disposition: Admitted As Inpatient Discharge Instructions Interventions: ED Discharge Assessment Last Done: 06/12/22 00:59
[2022-06-11 18:57] LABS: Appearance Urine Clear (Clear); Bacteria Urine Automated Negative (Negative); Bilirubin Urine Negative (Negative); Blood Urine 3+ (Negative); Cast Urine Automated 0 /lpf (0-5); Color Urine Yellow; Epithelial Cell Urine Auto >30 /lpf (0-5); Glucose Urine UA Negative (Negative); Ketones Urine Negative (Negative); Leukocyte Esterase Urine Trace (Negative); Nitrite Urine Negative (Negative); Protein Urine Negative (Negative); Specific Gravity Urine 1.009 (1.000-1.030); Urobilinogen Urine Negative (Negative); pH Urine 5.5 (4.5-7.5)
[2022-06-11 19:23] LABS: Amphetamines+Metham, Urine Neg (Neg); Barbiturates, Urine Neg (Neg); Benzodiazepine, Urine Neg (Neg); Cocaine, Urine Neg (Neg); MDMA (Ecstacy), Urine Neg (Neg); Methadone, Urine Neg (Neg); Opiate, Urine Neg (Neg); Phencyclidine, Urine Neg (Neg)
[2022-06-11 19:39] LABS: Basophils # (auto) 0.02 K/uL (0-0.2); Basophils % (auto) 0.4 %; Eosinophils % (auto) 1.8 %; Hematocrit (blood only) 35.1 % (34.1-44.9); Hemoglobin 11.2 g/dl (12.0-16.0); Immature Granulocytes # (auto) 0.01 K/uL (0.00-0.02); Immature Granulocytes % (auto) 0.2 %; Lymphocytes # (auto) 1.36 K/uL (1.2-3.4); Lymphocytes % (auto) 24.8 %; Mean Corpuscular Hemoglobin 25.3 pg (25.0-34.0); Mean Corpuscular Hgb Conc 31.9 g/dL (32.0-36.0); Mean Corpuscular Volume 79.4 fL (80.0-100.0); Mean Platelet Volume 10.4 fL (9.4-12.3); Monocytes # (auto) 0.37 K/uL (0.24-0.82); Monocytes % (auto) 6.8 %; Neutrophils # (auto) 3.62 K/uL (1.4-6.5); Platelet Count 281 K/uL (130-400); RDW Coefficient of Variation 13.2 % (11.5-14.5); RDW Standard Deviation 37.6 fL (36.4-46.3); Red Blood Count 4.42 M/uL (3.93-5.22); White Blood Count 5.48 K/ul (4.8-10.8)
[2022-06-11 20:03] LABS: Albumin Globulin Ratio 1.5 (0.9-2); Albumin Level 4.5 gm/dl (3.4-5.0); BUN Creatinine Ratio 17.6 (10-20); Bilirubin,Total 0.5 mg/dl (0.2-1.0); Calcium 9.4 mg/dl (8.5-10.1); Creatinine Clr Calc Pharmacy 70.6 ml/min; Est GFR (African American) 94.1 ml/min; Est GFR (Non-African American) 81.2 ml/min; Globulin 3.1 gm/dl (2.5-4.0); Potassium 4.3 mmol/L (3.5-5.1); Total Protein 7.6 gm/dl (6.0-8.3)
[2022-06-11 20:04] LABS: Acetaminophen < 3 ug/ml (10-30); Salicylate < 3.0 mg/dl (3.0-30)
[2022-06-11] MEDS ORDERED: MIRTAZAPINE TAB 15 MG TAB PO SCH (21:00)
[2022-06-11] MEDS ORDERED: SERTRALINE HCL 100 MG TABLET PO SCH (21:00)
[2022-06-12] MEDS ORDERED: ACETAMINOPHEN 325 MG TAB PO PRN (00:52)
[2022-06-12] MEDS ORDERED: hydrOXYzine HCl 25 MG TAB PO PRN ×2 (00:52)
[2022-06-12] MEDS ORDERED: SODIUM CHLORIDE 0.65% NA SOLN 45 ML (OCEAN) PRN (00:52)
[2022-06-12] MEDS ORDERED: ALUMINUM/MAGNESIUM SUSP 30 ML UDC PO PRN (00:52)
[2022-06-12] MEDS ORDERED: MAGNESIUM HYDROXIDE SUSP 30 ML UDC PO PRN (00:52)
[2022-06-12] MEDS ORDERED: BISMUTH SUBSALICYLATE LIQD 236 ML PO PRN (00:52)
[2022-06-12] MEDS ORDERED: GABAPENTIN 100 MG CAP PO SCH (09:00)
[2022-06-12] MEDS ORDERED: ALPRAZolam 0.25 MG TABLET PO PRN (10:11)
[2022-06-12] MEDS ORDERED: ALPRAZolam 0.25 MG TABLET PO ONE (10:12)
--- NOTE | 2022-06-12 10:14 | History & Physical ---
Date of Service June 12, 2022 Impression / Recommendations Impression 37 yo female with recurrent depression and ongoing anxiety/panic >1 year post depression who represents with inability to function at home and thoughts to OD. (1) MDD (major depressive disorder), recurrent episode, moderate: (2) Generalized anxiety disorder with panic attacks: Plan The patient was admitted to the [facility]) on q15 min checks (behavioral with suicide precautions) for safety. The patient will participate in group, recreational, and milieu therapies and will be offered additional individual and family sessions as clinically appropriate. She denies chance of but since routine screening missed on admission with order urine hcg for completeness. Patient gets some relief from Ativan but feels sedating, willing to try Xanax 0.25 mg temporarily as Zoloft is decreased in preparation to a cross taper to an SSNRI. Could increase Remeron but patient has some hx of weight concerns. 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 Chief Complaint "I feel like I'm falling apart." History of Present Illness Patient has called in and/or come to the ED (January) since discharge due to ongoing fluctuations in mood and concerns about her ongoing panic, particularly in the am an inability to care for children. Her mother has stayed with her on/off until recently. Her daughter is now in [place] and her 1 yo. attends a day care program a few days a week so her worries about the children are a distortion. She mainly appreciated the flexibility her mother provided in the ams and reports that yesterday she an her argued about her ongoing symptoms which triggered a "sprial" and return to ED. He oversees her medication for safety. She feels more reliant on Ativan but also dislikes how it and the Neurontin make her feel. She confirmed additional history as provided to the ED psych CM: She reports ups and downs since then but in the past few weeks her depression and anxiety have increased to the point that she is having difficulty functioning. She has been having suicidal thoughts and has considered overdosing on her prescribed Ativan because she knows that slows your heart down and can cause . Her has been holding her medications and giving them to her when it is time to take them. 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 She states it is difficult to do what needs to be done each day. She reports that her is sick of her being depressed and cannot understand why she cant get better. Pt states that is making everything so much worse. Pt is very tearful and has difficulty not crying. She reports feeling completely hopeless and as though none of this will ever get better. She reports waking up every morning having a panic attack. She states that her sleep is good because she takes Remeron to help her sleep. Pt sees a psychiatric provider, Denise Medeiros PA-C via telehealth from [facility] in [place]. She also sees a therapist, Ada Shepherd via telehealth. Pt is willing for inpatient treatment at this time. Past Psychiatric History Previous Psych History: also [facility] Current Psychiatric Diagnosis: MDD Previous Psych Admissions: November 2021 [facility] Do You Have Access To A Gun?: No History of Previous Suicide Attempt: No Past Medication Trials: Zoloft, Remeron, Lexapro, Neurontin, Ativan Allergies Allergy/AdvReac Type Severity Reaction Status Date / Time No Known Allergies Allergy Verified 11/23/21 10:09 Home Medications Medication Instructions Recorded Confirmed Type gabapentin 100 mg capsule 100 mg PO QID 06/11/22 06/12/22 History hydroxyzine HCl 25 mg tablet 25 mg PO Q4 06/11/22 06/11/22 History lorazepam 0.5 mg tablet 0.5 mg DAILY 06/11/22 06/12/22 History mirtazapine 15 mg tablet 15 mg PO HS 06/11/22 06/11/22 History sertraline 100 mg tablet 175 mg PO HS 06/11/22 06/11/22 History Family History Family History of: Doesn't Know Alcohol History Hx of Alcohol Use Over the Past 12 Months: Yes (half a cocktail three weeks ago) AUDIT Total Score: 1 Smoking Use Have You Smoked or Used Tobacco Products in the Last 30 Days: No Smoking Status: Never smoker Smoking packs per day: 0 Substance History Hx of Prescription Med Misuse Over the Past 12 Months: No Hx of Over the Counter Med Misuse Over the Past 12 Months: No Hx of Inhalent Misuse Over the Past 12 Months: No Hx of Organic Substance Use Over the Past 12 Months: No Hx of Illegal Substances/Street Drug Use Over Past 12 Months: No Problems as a Result of Past Substance Use: None Identified Personal History Living Arrangements: Home Highest Grade Completed: Graduate School Employment Status: Other (homemaker) Marital Status: Number Of Children: 2 Beliefs That Will Affect Care: None Current Legal Problems: No Hx Legal Problems: No Hx Traumatic Life Events: No Patient History Medical History Acute anxiety Depression with anxiety Depression with suicidal ideation Generalized anxiety disorder with panic attacks Post depression POTS (postural orthostatic tachycardia syndrome) not formalized diagnosed but suspects Social History Smoking Status: Never smoker Tobacco Type: Cigarettes Hx Alcohol Use: No Hx Substance Use: No Preferred Language: Jamaican Communication Ability: Effective Director Hematology Required: No Beliefs That Will Affect Care: None Feels Safe at Home: Yes Assistive Devices: None Review of Systems Review of Systems: All systems reviewed & are unremarkable except as noted in HPI & below Physical Exam Psychiatric: Orientation: alert and oriented x 3 Apperance: appropriately dressed and appropriately groomed Eye Contact: good eye contact Motor Behavior: no abnormal motor movements Speech: normal rate/rhythm/volume of speech Affect: + depressed affect Mood: + depressed mood Thought Process: + circumstantial thought process Thought Content: reality based without delusions Suicidal Thoughts: denies suicidal plan (on unit); + reports suicidal thoughts (intermittent, overwhelmed) Homicidal Thoughts: denies homicidal thoughts Hallucinations: no auditory hallucinations and no visual hallucinations Cognition: attention grossly intact and language grossly intact Estimated Intelligence: consistent with education level Insight: + limited insight Judgement: + limited judgement Vital Signs (Past 24 Hours): Last Vital Signs Temp 37 C 06/12/22 06:41 Pulse 92 H 06/12/22 06:43 Resp 16 06/12/22 06:41 BP 110/72 06/12/22 06:43 Pulse Ox 99 06/12/22 02:46 O2 Del Method 06/12/22 02:46 Exam Statement: A physical exam was performed in the ED by Dr. Allison for the purposes of medical clearance. I accept that physical as correct and adequate for the purposes of the inpatient physical exam. Results & Data ([facility]) Laboratory Results Laboratory Results - last 24 hr 06/11/22 06/11/22 06/11/22 18:46 18:46 18:46 WBC RBC Hgb Hct MCV MCH MCHC RDW Std Deviation RDW Coeff of Samantha Plt Count MPV Immature Gran % (Auto) Neut % (Auto) Lymph % (Auto) [place] % (Auto) Eos % (Auto) Baso % (Auto) Neut # (Auto) Lymph # (Auto) [place] # (Auto) Eos # (Auto) Baso # (Auto) Immature Gran # (Auto) Sodium Potassium Chloride Carbon Dioxide Anion Gap BUN Creatinine Est Cr Clr Drug Dosing Est GFR ( Amer) Est GFR (Non-Af Amer) BUN/Creatinine Ratio Glucose Calcium Total Bilirubin AST ALT Alkaline Phosphatase Total Protein Albumin Globulin Albumin/Globulin Ratio TSH Urine Color Yellow Urine Appearance Clear Urine pH 5.5 Ur Specific [place] 1.009 Urine Protein Negative Urine Glucose (UA) Negative Urine Ketones Negative Urine Blood 3+ H Urine Nitrite Negative Urine Bilirubin Negative Urine Urobilinogen Negative Ur Leukocyte Esterase Trace H Urine WBC (Auto) 1-5 Urine RBC (Auto) 10-30 H U Hyaline Cast (Auto) 0 U Epithel Cells (Auto) >30 H Urine Bacteria (Auto) Negative Salicylates Urine Opiates Screen Neg Ur Methadone, Qual Neg Acetaminophen Urine Barbiturates Neg Ur Phencyclidine (PCP) Neg U Amphetamin/Meth Scrn Neg MDMA (Ecstasy) Screen Neg U Benzodiazepines Scrn Neg Ur Cocaine Metabolite Neg U Marijuana (THC) Screen Neg Ethyl Alcohol mg/dL SARS-CoV-2, RNA, NAAT NEGATIVE 06/11/22 06/11/22 06/11/22 18:58 18:58 18:58 WBC 5.48 RBC 4.42 Hgb 11.2 L Hct 35.1 MCV 79.4 L MCH 25.3 MCHC 31.9 L RDW Std Deviation 37.6 RDW Coeff of Samantha 13.2 Plt Count 281 MPV 10.4 Immature Gran % (Auto) 0.2 Neut % (Auto) 66.0 Lymph % (Auto) 24.8 [place] % (Auto) 6.8 Eos % (Auto) 1.8 Baso % (Auto) 0.4 Neut # (Auto) 3.62 Lymph # (Auto) 1.36 [place] # (Auto) 0.37 Eos # (Auto) 0.10 Baso # (Auto) 0.02 Immature Gran # (Auto) 0.01 Sodium 138 Potassium 4.3 Chloride 105 Carbon Dioxide 28 Anion Gap 5 BUN 16 Creatinine 0.91 Est Cr Clr Drug Dosing 70.6 Est GFR ( Amer) 94.1 Est GFR (Non-Af Amer) 81.2 BUN/Creatinine Ratio 17.6 Glucose 94 Calcium 9.4 Total Bilirubin 0.5 AST 13 ALT 10 Alkaline Phosphatase 44 Total Protein 7.6 Albumin 4.5 Globulin 3.1 Albumin/Globulin Ratio 1.5 TSH 2.656 Urine Color Urine Appearance Urine pH Ur Specific [place] Urine Protein Urine Glucose (UA) Urine Ketones Urine Blood Urine Nitrite Urine Bilirubin Urine Urobilinogen Ur Leukocyte Esterase Urine WBC (Auto) Urine RBC (Auto) U Hyaline Cast (Auto) U Epithel Cells (Auto) Urine Bacteria (Auto) Salicylates Urine Opiates Screen Ur Methadone, Qual Acetaminophen Urine Barbiturates Ur Phencyclidine (PCP) U Amphetamin/Meth Scrn MDMA (Ecstasy) Screen U Benzodiazepines Scrn Ur Cocaine Metabolite U Marijuana (THC) Screen Ethyl Alcohol mg/dL SARS-CoV-2, RNA, NAAT 06/11/22 06/11/22 18:58 18:58 WBC RBC Hgb Hct MCV MCH MCHC RDW Std Deviation RDW Coeff of Samantha Plt Count MPV Immature Gran % (Auto) Neut % (Auto) Lymph % (Auto) [place] % (Auto) Eos % (Auto) Baso % (Auto) Neut # (Auto) Lymph # (Auto) [place] # (Auto) Eos # (Auto) Baso # (Auto) Immature Gran # (Auto) Sodium Potassium Chloride Carbon Dioxide Anion Gap BUN Creatinine Est Cr Clr Drug Dosing Est GFR ( Amer) Est GFR (Non-Af Amer) BUN/Creatinine Ratio Glucose Calcium Total Bilirubin AST ALT Alkaline Phosphatase Total Protein Albumin Globulin Albumin/Globulin Ratio TSH Urine Color Urine Appearance Urine pH Ur Specific [place] Urine Protein Urine Glucose (UA) Urine Ketones Urine Blood Urine Nitrite Urine Bilirubin Urine Urobilinogen Ur Leukocyte Esterase Urine WBC (Auto) Urine RBC (Auto) U Hyaline Cast (Auto) U Epithel Cells (Auto) Urine Bacteria (Auto) Salicylates < 3.0 L Urine Opiates Screen Ur Methadone, Qual Acetaminophen < 3 L Urine Barbiturates Ur Phencyclidine (PCP) U Amphetamin/Meth Scrn MDMA (Ecstasy) Screen U Benzodiazepines Scrn Ur Cocaine Metabolite U Marijuana (THC) Screen Ethyl Alcohol mg/dL < 10.0 SARS-CoV-2, RNA, NAAT Current Inpatient Medications Current Inpatient Medications: Current Inpatient Medications Acetaminophen (Acetaminophen 325 Mg Tab) 650 mg PO Q4H PRN PRN Reason: Headache or Minor Fever Stop: 07/12/22 00:51 Al Hydrox/Mg Hydrox/Simethicone (Aluminum/Magnesium Susp 30 Ml Udc) 30 ml PO Q4H PRN PRN Reason: GI Upset Stop: 07/12/22 00:51 Alprazolam (Alprazolam 0.25 Mg Tablet) 0.25 mg PO Q6H PRN PRN Reason: Anxiety Stop: 07/12/22 10:10 Alprazolam (Alprazolam 0.25 Mg Tablet) 0.25 mg PO ONE ONE Stop: 06/12/22 10:13 Bismuth Subsalicylate (Bismuth Subsalicylate Liqd 236 Ml) 15 ml PO PRN PRN PRN Reason: Loose Stool Stop: 07/12/22 00:51 Gabapentin (Gabapentin 100 Mg Cap) 100 mg PO QID SHERYL Stop: 07/12/22 12:59 Hydroxyzine HCl (Hydroxyzine Hcl 25 Mg Tab) 50 mg PO HSZ PRN PRN Reason: Insomnia Stop: 07/12/22 00:51 Hydroxyzine HCl (Hydroxyzine Hcl 25 Mg Tab) 25 mg PO Q4H PRN PRN Reason: Anxiety Stop: 07/12/22 00:51 Last Admin: 06/12/22 06:47 Dose: 25 mg Magnesium Hydroxide (Magnesium Hydroxide Susp 30 Ml Udc) 30 ml PO DAILY PRN PRN Reason: Constipation Stop: 07/12/22 00:51 Mirtazapine (Mirtazapine Tab 15 Mg Tab) 15 mg PO HS SHERYL Stop: 07/12/22 21:59 Sertraline HCl (Sertraline Hcl 100 Mg Tablet) 100 mg PO HS SHERYL Stop: 07/12/22 21:59 Sodium Chloride (Sodium Chloride 0.65% Na Soln 45 Ml ([place])) 1 - 2 sprays NA PRN PRN PRN Reason: Nasal Dryness/Congestion Stop: 07/12/22 00:51
[2022-06-12] MEDS: GABAPENTIN 100 MG CAP PO SCH ×3 (13:15→21:13)
[2022-06-12 14:20] LABS: Pregnancy Test, Urine Negative (Negative)
[2022-06-12] MEDS: MIRTAZAPINE TAB 15 MG TAB PO SCH (21:13)
[2022-06-12] MEDS ORDERED: SERTRALINE HCL 100 MG TABLET PO SCH (22:00)
[2022-06-13] MEDS: GABAPENTIN 100 MG CAP PO SCH ×4 (08:39→20:52)
--- NOTE | 2022-06-13 13:29 | Psychiatric Progress Note ---
Date of Service June 13, 2022 Impression / Recommendations Impression 37 yo female with recurrent depression and ongoing anxiety/panic >1 year post depression who represents with inability to function at home and thoughts to OD. 06/13/22: ongoing anxiety/overwhelm. (1) MDD (major depressive disorder), recurrent episode, moderate: (2) Generalized anxiety disorder with panic attacks: Plan 06/13/22: will add standing dose of Xanax in am short term, continue Zoloft taper to 50 mg then d/c in favor of a trial of Cymbalta 20 mg po qam. 06/12/22: The patient was admitted to the [facility] on q15 min checks (behavioral with suicide precautions) for safety. The patient will participate in group, recreational, and milieu therapies and will be offered additional individual and family sessions as clinically appropriate. She denies chance of but since routine screening missed on admission with order urine hcg for completeness. Patient gets some relief from Ativan but feels sedating, willing to try Xanax 0.25 mg temporarily as Zoloft is decreased in preparation to a cross taper to an SSNRI. Could increase Remeron but patient has some hx of weight concerns. 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 Chief Complaint "mornings are still rough" Review of Systems Sleep Information Total Hours of Sleep: 7.75 Meal Information Percent Meal Consumed - Breakfast: 100 Percent Meal Consumed - Lunch: 100 Percent Meal Consumed - Dinner: 90 Subjective Subjective Patient was seen & assessed and interval progress reviewed with nursing and social work. The patient received Xanax prn this am, doesn't feel it's as effective as Ativan but also less sedating and admits that she believed that taking Ativan was to avoid anxiety. Remains focussed on IOP mainly as a goal of her so we discussed other ways to add structure to her day. She remains overwhelmed with how to manage her perfectionism. Physical Exam Psychiatric Orientation: alert and oriented x 3 Apperance: appropriately dressed and appropriately groomed Eye Contact: good eye contact Motor Behavior: no abnormal motor movements Speech: normal rate/rhythm/volume of speech Affect: + depressed affect Mood: + depressed mood Thought Process: + circumstantial thought process Thought Content: reality based without delusions Suicidal Thoughts: + reports suicidal thoughts (more passive) Homicidal Thoughts: denies homicidal thoughts Hallucinations: no auditory hallucinations and no visual hallucinations Cognition: attention grossly intact and language grossly intact Estimated Intelligence: consistent with education level Insight: + limited insight Judgement: + limited judgement Vital Signs (Past 24 Hours) Last Vital Signs Temp 37 C 06/13/22 06:26 Pulse 81 06/13/22 06:27 Resp 16 06/13/22 06:26 BP 101/72 06/13/22 06:27 Pulse Ox 99 06/12/22 02:46 O2 Del Method 06/12/22 02:46 Results & Data ([facility]) Laboratory Results Laboratory Results - last 24 hr 06/12/22 14:07 Urine Test Negative Current Inpatient Medications Current Inpatient Medications: Current Inpatient Medications Acetaminophen (Acetaminophen 325 Mg Tab) 650 mg PO Q4H PRN PRN Reason: Headache or Minor Fever Stop: 07/12/22 00:51 Last Admin: 06/12/22 17:08 Dose: 650 mg Al Hydrox/Mg Hydrox/Simethicone (Aluminum/Magnesium Susp 30 Ml Udc) 30 ml PO Q4H PRN PRN Reason: GI Upset Stop: 07/12/22 00:51 Alprazolam (Alprazolam 0.25 Mg Tablet) 0.25 mg PO Q6H PRN PRN Reason: Anxiety Stop: 07/12/22 10:10 Last Admin: 06/13/22 07:53 Dose: 0.25 mg Bismuth Subsalicylate (Bismuth Subsalicylate Liqd 236 Ml) 15 ml PO PRN PRN PRN Reason: Loose Stool Stop: 07/12/22 00:51 Gabapentin (Gabapentin 100 Mg Cap) 100 mg PO QID SHERYL Stop: 07/12/22 12:59 Last Admin: 06/13/22 13:13 Dose: 100 mg Hydroxyzine HCl (Hydroxyzine Hcl 25 Mg Tab) 50 mg PO HSZ PRN PRN Reason: Insomnia Stop: 07/12/22 00:51 Hydroxyzine HCl (Hydroxyzine Hcl 25 Mg Tab) 25 mg PO Q4H PRN PRN Reason: Anxiety Stop: 07/12/22 00:51 Last Admin: 06/12/22 06:47 Dose: 25 mg Magnesium Hydroxide (Magnesium Hydroxide Susp 30 Ml Udc) 30 ml PO DAILY PRN PRN Reason: Constipation Stop: 07/12/22 00:51 Mirtazapine (Mirtazapine Tab 15 Mg Tab) 15 mg PO HS SHERYL Stop: 07/12/22 21:59 Last Admin: 06/12/22 21:13 Dose: 15 mg Sodium Chloride (Sodium Chloride 0.65% Na Soln 45 Ml ([place])) 1 - 2 sprays NA PRN PRN PRN Reason: Nasal Dryness/Congestion Stop: 07/12/22 00:51 Mental Health & Subst Abuse Tx Therapist Name of Therapist: Ada Shepherd Sausage Wrapper Name of Sausage Wrapper: None Post Discharge Appointments Primary Care Physician Name Of Family Doctor: Dr Maeyn
[2022-06-13] MEDS: MIRTAZAPINE TAB 15 MG TAB PO SCH (20:50)
[2022-06-13] MEDS ORDERED: SERTRALINE HCL 50 MG TABLET PO ONE (21:00)
[2022-06-14] MEDS: ALPRAZolam 0.25 MG TABLET PO SCH (08:59)
[2022-06-14] MEDS: GABAPENTIN 100 MG CAP PO SCH ×4 (08:59→21:08)
[2022-06-14] MEDS: DULoxetine HCL 20 MG CAP PO SCH (08:59)
[2022-06-14] MEDS ORDERED: SERTRALINE HCL 50 MG TABLET PO ONE (13:10)
--- NOTE | 2022-06-14 13:18 | Psychiatric Progress Note ---
Date of Service June 14, 2022 Impression / Recommendations Impression 37 yo female with recurrent depression and ongoing anxiety/panic >1 year post depression who represents with inability to function at home and thoughts to OD. 06/14/22: appears brighter today, ongoing anxiety, mild discontinuation syndrome from SSRI (1) MDD (major depressive disorder), recurrent episode, moderate: (2) Generalized anxiety disorder with panic attacks: Plan 06/14/22: will give 25 mg Zoloft tonight, patient declines to do slower Zoloft taper based on current symptoms and starting Cymbalta. safety planning. 06/13/22: will add standing dose of Xanax in am short term, continue Zoloft taper to 50 mg then d/c in favor of a trial of Cymbalta 20 mg po qam. 06/12/22: The patient was admitted to the [facility] ([facility]) on q15 min checks (behavioral with suicide precautions) for safety. The patient will participate in group, recreational, and milieu therapies and will be offered additional individual and family sessions as clinically appropriate. She denies chance of but since routine screening missed on admission with order urine hcg for completeness. Patient gets some relief from Ativan but feels sedating, willing to try Xanax 0.25 mg temporarily as Zoloft is decreased in preparation to a cross taper to an SSNRI. Could increase Remeron but patient has some hx of weight concerns. 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 Chief Complaint "I changed my mind on referrals." Review of Systems Sleep Information Total Hours of Sleep: 6.5 Meal Information Percent Meal Consumed - Breakfast: 50 Percent Meal Consumed - Lunch: 100 Percent Meal Consumed - Dinner: 95 Subjective Subjective Patient was seen & assessed and interval progress reviewed with treatment team. Patient ambivalent around changing providers, is concerned about med cross taper. Didn't sleep well at night but slept later this am and didn't take Xanax until offered late. meeting with today. Has some night sweats and mild N last pm, attributes to discontinuation from Zoloft. Physical Exam Psychiatric Orientation: alert and oriented x 3 Apperance: appropriately dressed and appropriately groomed Eye Contact: good eye contact Motor Behavior: no abnormal motor movements Speech: normal rate/rhythm/volume of speech Affect: + depressed affect Mood: + depressed mood Thought Process: + circumstantial thought process Thought Content: reality based without delusions Suicidal Thoughts: denies suicidal thoughts and denies suicidal plan Homicidal Thoughts: denies homicidal thoughts Hallucinations: no auditory hallucinations and no visual hallucinations Cognition: attention grossly intact and language grossly intact Estimated Intelligence: consistent with education level Vital Signs (Past 24 Hours) Last Vital Signs Temp 36.7 C 06/14/22 06:45 Pulse 93 H 06/14/22 06:46 Resp 18 06/14/22 06:45 BP 108/81 06/14/22 06:46 Pulse Ox 99 06/12/22 02:46 O2 Del Method 06/12/22 02:46 Results & Data ([facility]) Current Inpatient Medications Current Inpatient Medications: Current Inpatient Medications Acetaminophen (Acetaminophen 325 Mg Tab) 650 mg PO Q4H PRN PRN Reason: Headache or Minor Fever Stop: 07/12/22 00:51 Last Admin: 06/12/22 17:08 Dose: 650 mg Al Hydrox/Mg Hydrox/Simethicone (Aluminum/Magnesium Susp 30 Ml Udc) 30 ml PO Q4H PRN PRN Reason: GI Upset Stop: 07/12/22 00:51 Alprazolam (Alprazolam 0.25 Mg Tablet) 0.25 mg PO Q6H PRN PRN Reason: Anxiety Stop: 07/12/22 10:10 Last Admin: 06/13/22 07:53 Dose: 0.25 mg Alprazolam (Alprazolam 0.25 Mg Tablet) 0.25 mg PO DAILY@0700 SHERYL Stop: 07/14/22 08:39 Last Admin: 06/14/22 08:59 Dose: 0.25 mg Bismuth Subsalicylate (Bismuth Subsalicylate Liqd 236 Ml) 15 ml PO PRN PRN PRN Reason: Loose Stool Stop: 07/12/22 00:51 Duloxetine HCl (Duloxetine Hcl 20 Mg Cap) 20 mg PO QAM SHERYL Stop: 07/14/22 08:59 Last Admin: 06/14/22 08:59 Dose: 20 mg Gabapentin (Gabapentin 100 Mg Cap) 100 mg PO QID SHERYL Stop: 07/12/22 12:59 Last Admin: 06/14/22 08:59 Dose: 100 mg Hydroxyzine HCl (Hydroxyzine Hcl 25 Mg Tab) 50 mg PO HSZ PRN PRN Reason: Insomnia Stop: 07/12/22 00:51 Hydroxyzine HCl (Hydroxyzine Hcl 25 Mg Tab) 25 mg PO Q4H PRN PRN Reason: Anxiety Stop: 07/12/22 00:51 Last Admin: 06/12/22 06:47 Dose: 25 mg Magnesium Hydroxide (Magnesium Hydroxide Susp 30 Ml Udc) 30 ml PO DAILY PRN PRN Reason: Constipation Stop: 07/12/22 00:51 Mirtazapine (Mirtazapine Tab 15 Mg Tab) 15 mg PO HS SHERYL Stop: 07/12/22 21:59 Last Admin: 06/13/22 20:50 Dose: 15 mg Sertraline HCl (Sertraline Hcl 50 Mg Tablet) 25 mg PO HS ONE Stop: 06/14/22 13:11 Sodium Chloride (Sodium Chloride 0.65% Na Soln 45 Ml ([place])) 1 - 2 sprays NA PRN PRN PRN Reason: Nasal Dryness/Congestion Stop: 07/12/22 00:51 Mental Health & Subst Abuse Tx Therapist Name of Therapist: Ada Shepherd Quality Assurance Qa Lab Technician Name of Quality Assurance Qa Lab Technician: None Post Discharge Appointments Primary Care Physician Name Of Family Doctor: Dr Mayen
[2022-06-14] MEDS ORDERED: ALPRAZolam 0.25 MG TABLET PO SCH (13:45)
[2022-06-14] MEDS: MIRTAZAPINE TAB 15 MG TAB PO SCH (21:08)
[2022-06-15] MEDS: ALPRAZolam 0.25 MG TABLET PO SCH (06:48)
[2022-06-15] MEDS: GABAPENTIN 100 MG CAP PO SCH (09:07)
[2022-06-15] MEDS: DULoxetine HCL 20 MG CAP PO SCH (09:07)
--- NOTE | 2022-06-15 11:07 | Discharge Summary ---
Date of Service June 15, 2022 History of Present Illness Patient has called in and/or come to the ED (January) since discharge due to ongoing fluctuations in mood and concerns about her ongoing panic, particularly in the am an inability to care for children. Her mother has stayed with her on/off until recently. Her daughter is now in [place] and her 1 yo. attends a day care program a few days a week so her worries about the children are a distortion. She mainly appreciated the flexibility her mother provided in the ams and reports that yesterday she an her argued about her ongoing symptoms which triggered a "sprial" and return to ED. He oversees her medication for safety. She feels more reliant on Ativan but also dislikes how it and the Neurontin make her feel. She confirmed additional history as provided to the ED psych CM: She reports ups and downs since then but in the past few weeks her depression and anxiety have increased to the point that she is having difficulty functioning. She has been having suicidal thoughts and has considered overdosing on her prescribed Ativan because she knows that slows your heart down and can cause . Her has been holding her medications and giving them to her when it is time to take them. 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 She states it is difficult to do what needs to be done each day. She reports that her is sick of her being depressed and cannot understand why she cant get better. Pt states that is making everything so much worse. Pt is very tearful and has difficulty not crying. She reports feeling completely hopeless and as though none of this will ever get better. She reports waking up every morning having a panic attack. She states that her sleep is good because she takes Remeron to help her sleep. Pt sees a psychiatric provider, Denise Medeiros PA-C via telehealth from [facility] in [place]. She also sees a therapist, Ada Shepherd via telehealth. Pt is willing for inpatient treatment at this time. Physical Exam Psychiatric See admission H&P and DOD assessment. Vital Signs (Past 24 Hours) Last Vital Signs Temp 36.3 C L 06/15/22 10:22 Pulse 72 06/15/22 10:22 Resp 18 06/15/22 10:22 BP 123/73 06/15/22 10:22 Pulse Ox 100 06/15/22 10:22 O2 Del Method 11/10/22 06:00 Principal Diagnosis major depressive disorder Psychiatric Data See daily stay summary. In short, safety was maintained and the patient was cooperative with care. Medication changes included a trial of low dose Xanax in place of prn Ativan (sedating) and cross taper of Zoloft to Cymbalta and they tolerated this well with minimal night sweats and nausea from d/c Zoloft. A family session was held with the patient's and safety plan was completed prior to discharge. Reviewed with patient that is she desires a second opinion re: her treatment plan would recommend being seen at a mood clinic at [facility]. Day of Discharge Assessment Today the patient voices readiness for discharge. They note improvement in mood and deny thoughts to harm self or others. Thoughts remain organized and they are improved from admission. There is no evidence of psychosis. They agree to take mediations as prescribed and keep follow-up appointments. They are stable for discharge to outpatient level of care. Transition of Care Transition Of Care Record: was reviewed with the patient Advance Directives Advance Directives Information Provided: Yes Advance Directives: No Mental Health Advance Directive: No Advance Directives on File: No Living Will: No Power of Superintendent Drilling And Production: No Advance Directives Reason:: Declines as Mental Health Visit. Suicide Risk Level Suicide Risk Level Comments: Suicide risk at discharge is deemed low as the patient is no longer requiring 24-hr monitoring, has a safety plan, and is free of suicidal ideation at discharge. Risk Factors Assessment : Yes Do You Have Access To A Gun?: No Mental Health Diagnoses: Yes Substance Use Disorders: No Previous Psychiatric Hospitalization: Yes Protective Factors Assessment : Yes Responsible for Young Children: Yes Employed: No (Stay at home mom; children 1 and 6 yrs old) Supportive Family: Yes Tobacco Cessation at Discharge Tobacco Cessation Medication Prescribed at Discharge: Not Applicable/Non-Smoker Total Time Total Time Spent: Greater Than 30 Minutes Total Time Includes: Examination of the patient, Discharge Planning and Medication Reconciliation Discharge Data Lab Results 06/11/22 06/11/22 06/11/22 18:46 18:46 18:46 WBC RBC Hgb Hct MCV MCH MCHC RDW Std Deviation RDW Coeff of Samantha Plt Count MPV Immature Gran % (Auto) Neut % (Auto) Lymph % (Auto) [place] % (Auto) Eos % (Auto) Baso % (Auto) Neut # (Auto) Lymph # (Auto) [place] # (Auto) Eos # (Auto) Baso # (Auto) Immature Gran # (Auto) Sodium Potassium Chloride Carbon Dioxide Anion Gap BUN Creatinine Est Cr Clr Drug Dosing Est GFR ( Amer) Est GFR (Non-Af Amer) BUN/Creatinine Ratio Glucose Calcium Total Bilirubin AST ALT Alkaline Phosphatase Total Protein Albumin Globulin Albumin/Globulin Ratio TSH Urine Color Yellow Urine Appearance Clear Urine pH 5.5 Ur Specific [place] 1.009 Urine Protein Negative Urine Glucose (UA) Negative Urine Ketones Negative Urine Blood 3+ H Urine Nitrite Negative Urine Bilirubin Negative Urine Urobilinogen Negative Ur Leukocyte Esterase Trace H Urine WBC (Auto) 1-5 Urine RBC (Auto) 10-30 H U Hyaline Cast (Auto) 0 U Epithel Cells (Auto) >30 H Urine Bacteria (Auto) Negative Urine Test Salicylates Urine Opiates Screen Neg Ur Methadone, Qual Neg Acetaminophen Urine Barbiturates Neg Ur Phencyclidine (PCP) Neg U Amphetamin/Meth Scrn Neg MDMA (Ecstasy) Screen Neg U Benzodiazepines Scrn Neg Ur Cocaine Metabolite Neg U Marijuana (THC) Screen Neg Ethyl Alcohol mg/dL SARS-CoV-2, RNA, NAAT NEGATIVE 06/11/22 06/11/22 06/11/22 18:58 18:58 18:58 WBC 5.48 RBC 4.42 Hgb 11.2 L Hct 35.1 MCV 79.4 L MCH 25.3 MCHC 31.9 L RDW Std Deviation 37.6 RDW Coeff of Samantha 13.2 Plt Count 281 MPV 10.4 Immature Gran % (Auto) 0.2 Neut % (Auto) 66.0 Lymph % (Auto) 24.8 [place] % (Auto) 6.8 Eos % (Auto) 1.8 Baso % (Auto) 0.4 Neut # (Auto) 3.62 Lymph # (Auto) 1.36 [place] # (Auto) 0.37 Eos # (Auto) 0.10 Baso # (Auto) 0.02 Immature Gran # (Auto) 0.01 Sodium 138 Potassium 4.3 Chloride 105 Carbon Dioxide 28 Anion Gap 5 BUN 16 Creatinine 0.91 Est Cr Clr Drug Dosing 70.6 Est GFR ( Amer) 94.1 Est GFR (Non-Af Amer) 81.2 BUN/Creatinine Ratio 17.6 Glucose 94 Calcium 9.4 Total Bilirubin 0.5 AST 13 ALT 10 Alkaline Phosphatase 44 Total Protein 7.6 Albumin 4.5 Globulin 3.1 Albumin/Globulin Ratio 1.5 TSH 2.656 Urine Color Urine Appearance Urine pH Ur Specific [place] Urine Protein Urine Glucose (UA) Urine Ketones Urine Blood Urine Nitrite Urine Bilirubin Urine Urobilinogen Ur Leukocyte Esterase Urine WBC (Auto) Urine RBC (Auto) U Hyaline Cast (Auto) U Epithel Cells (Auto) Urine Bacteria (Auto) Urine Test Salicylates Urine Opiates Screen Ur Methadone, Qual Acetaminophen Urine Barbiturates Ur Phencyclidine (PCP) U Amphetamin/Meth Scrn MDMA (Ecstasy) Screen U Benzodiazepines Scrn Ur Cocaine Metabolite U Marijuana (THC) Screen Ethyl Alcohol mg/dL SARS-CoV-2, RNA, NAAT 06/11/22 06/11/22 06/12/22 18:58 18:58 14:07 WBC RBC Hgb Hct MCV MCH MCHC RDW Std Deviation RDW Coeff of Samantha Plt Count MPV Immature Gran % (Auto) Neut % (Auto) Lymph % (Auto) [place] % (Auto) Eos % (Auto) Baso % (Auto) Neut # (Auto) Lymph # (Auto) [place] # (Auto) Eos # (Auto) Baso # (Auto) Immature Gran # (Auto) Sodium Potassium Chloride Carbon Dioxide Anion Gap BUN Creatinine Est Cr Clr Drug Dosing Est GFR ( Amer) Est GFR (Non-Af Amer) BUN/Creatinine Ratio Glucose Calcium Total Bilirubin AST ALT Alkaline Phosphatase Total Protein Albumin Globulin Albumin/Globulin Ratio TSH Urine Color Urine Appearance Urine pH Ur Specific [place] Urine Protein Urine Glucose (UA) Urine Ketones Urine Blood Urine Nitrite Urine Bilirubin Urine Urobilinogen Ur Leukocyte Esterase Urine WBC (Auto) Urine RBC (Auto) U Hyaline Cast (Auto) U Epithel Cells (Auto) Urine Bacteria (Auto) Urine Test Negative Salicylates < 3.0 L Urine Opiates Screen Ur Methadone, Qual Acetaminophen < 3 L Urine Barbiturates Ur Phencyclidine (PCP) U Amphetamin/Meth Scrn MDMA (Ecstasy) Screen U Benzodiazepines Scrn Ur Cocaine Metabolite U Marijuana (THC) Screen Ethyl Alcohol mg/dL < 10.0 SARS-CoV-2, RNA, NAAT Hospital Course (1) MDD (major depressive disorder), recurrent episode, moderate: (2) Generalized anxiety disorder with panic attacks: Plan 06/14/22: will give 25 mg Zoloft tonight, patient declines to do slower Zoloft taper based on current symptoms and starting Cymbalta. safety planning. 06/13/22: will add standing dose of Xanax in am short term, continue Zoloft taper to 50 mg then d/c in favor of a trial of Cymbalta 20 mg po qam. 06/12/22: The patient was admitted to the [facility] ([facility]) on q15 min checks (behavioral with suicide precautions) for safety. The patient will participate in group, recreational, and milieu therapies and will be offered additional individual and family sessions as clinically appropriate. She denies chance of but since routine screening missed on admission with order urine hcg for completeness. Patient gets some relief from Ativan but feels sedating, willing to try Xanax 0.25 mg temporarily as Zoloft is decreased in preparation to a cross taper to an SSNRI. Could increase Remeron but patient has some hx of weight concerns. Mental Health & Subst Abuse Tx Psychiatrist Name of Psychiatrist: [facility] - SUAD Muniz Psychiatrist's Date of Appointment with Psychiatrist: 06/19/22 Time of Appointment with Psychiatrist: 10:15a Psychiatric Appointment Comment: [address], [place] [id number] Psychiatrist Release of Information: Obtained, Reviewed and Signed Therapist Name of Therapist: [facility] - Lucila Franco LCSW Therapist's Date of Therapist Appointment: 06/20/22 Time of Therapist Appointment: 4:30pm Therapy Appointment Comment: [address], [place] [id number] Therapist Release of Information: Obtained, Reviewed and Signed Produce Department Manager Name of Produce Department Manager: Lillian Deleon Phone Number for Produce Department Manager: [phone] Case Management Appointment Comment: They have your referral and will follow up to initiate services Produce Department Manager Release of Information: Obtained, Reviewed and Signed Post Discharge Appointments Primary Care Physician Name Of Family Doctor: Dr Mayen- [facility] Primary Care Provider Appointment Comment: follow up as needed Primary Care Release of Information: Obtained, Reviewed and Signed Smoking Cessation Counseling Tobacco Cessation Medication Prescribed at Discharge: Not Applicable/Non-Smoker Discharge Plan Discharge Items Patient Disposition: Home - Self-Care Reason For Visit: MENTAL HEALTH EVALUATION Discharge Diagnosis: major depressive disorder Activity: Resume your previous activity Non-emergency contact: Primary Care Provider, Psychiatrist and Therapist Call non-emergency contact if: you have any medication questions and your symptoms worsen Follow-up/Referrals: Shauna Mayen DO [Primary Care Provider] - Diet: Regular Addtl Attending Provider Instructions: SPECIAL CARE INSTRUCTIONS: 1. Follow through with your scheduled aftercare appointments. If unable to keep an appointment, please call to reschedule. 2. Take your medication only as prescribed. Medication should not be changed or stopped without the approval of your doctor. In the event of worsening symptoms or concerns about side effects, contact your doctor immediately. 3. Utilize new healthy coping skills, anger management skills, and stress management skills learned during your hospitalization. Journal feelings and process them with a support person. Identify stressors or situations that may result in relapse, deterioration or inappropriate behaviors and develop a plan to deal with those issues. 4. If your coping skills are ineffective and you are in crisis, contact your outpatient providers for direction. If unable to reach your providers, please call the [facility] CRISIS LINE AT , go to the [facility] walk-in center at [address] [place] [address] [facility], or go to the closest Emergency Room. 5. Avoid alcohol and un-prescribed drugs. 6. You have been provided with the Mental Health Advance Directives Pamphlet for your review. 7. Your condition is stable for discharge to outpatient level of care, but recovery is an ongoing process. Ifthoughts to harm yourself or others return, follow the safety plan developed during your stay. Planning for a safe return home includes securing weapons. Our treatment team recommends weaponsbe removed from the home until your outpatient provider reassesses your progress. In rare cases where the items themselvescannot be removed, guns and ammunitionshould be secured separatelyand keys stored by a reliable personoutside of the home. If you were admitted on an involuntary commitment, the police or other legal authorities may be involved in this process. AFTERCARE APPOINTMENTS: * Please call your insurance company prior to your scheduled appointment to confirm your aftercare providers are covered. Take your insurance information to your appointments. WHO TO CALL AND WHEN: Medical Emergencies: For questions or emergencies related to your hospital stay, please contact the Inpatient Behavioral Health Unit at [phone]. A psychiatric lpn is on-call 26/02 for the Behavioral Health Unit for emergencies At any time you feel your situation is an emergency, you may also call 911 immediately. Addtl Oral Hygienist Provider Instructions: You may still experience a mild discontinuation syndrome from Zoloft. If so, you may take 25 mg of Zoloft from your home supply for 2-3 nights. The dose range for Cymbalta is 20 mg-120 mg, typically 60-90 mg for maintenance. You are being discharged on 30 mg daily and your prescriber may titrate in 1-2 weeks based on your symptoms and tolerability. Pending Studies at Discharge: No Stand-Alone Forms: My [facility], Smoking Cessation Medications and DC Order Prescriptions: New alprazolam 0.25 mg Tablet 0.25 mg PO Q6H PRN (Reason: anxiety) Qty: 30 0RF duloxetine [Cymbalta] 30 mg capsule,delayed release(DR/EC) 30 mg PO DAILY Qty: 30 0RF Continued gabapentin 100 mg capsule 100 mg PO QID mirtazapine 15 mg tablet 15 mg PO HS hydroxyzine HCl 25 mg tablet 25 mg PO Q4 Discontinued lorazepam 0.5 mg tablet 0.5 mg DAILY sertraline 100 mg tablet 175 mg PO HS Discharge Orders: Discharge Order (Routine); Ordered 06/15/22 Ordered By: Mitzi Fortune Admission Data Admit Date/Time: 06/12/22 00:54 Attending Provider: Mitzi Fortune Admit Provider: Mitzi Fortune Primary Care Provider: Shauna Mayen Other Interventions: Discharge Summary Assessment (RN) Last Done: 06/15/22 10:22 PSY Interdisciplinary Discharge Planning Last Done: 06/15/22 10:30 Coding Level of Care Code 76930 D/C day mgmt > 30 min Diagnoses MDD (major depressive disorder), recurrent episode, moderate F33.1 Generalized anxiety disorder with panic attacks F41.1; F41.0
== END 2022-06-15 11:38 | disposition home or self-care (01) | DRG 885 ==
LOC: ED 17:22 → 3S 06-12 00:59